=== PATIENT | female | born 1945 | race Caucasian/White ===

== ENCOUNTER 2020-04-18 16:36 | Inpatient (IN) ==
[2020-04-18] MEDS ORDERED: 0.9 % SODIUM CHLORIDE 1,000 ML IV ONE (17:35)
--- NOTE | 2020-04-18 17:41 | Emergency Department Note ---
Weakness HPI General Chief complaint: Weakness Stated complaint: Fall, lethargic, not eating or drinking Time Seen by Provider: 04/18/20 16:42 Source: EMS Mode of arrival: EMS Limitations: no limitations and altered mental status (Seeming lethargic or severe malaise but also arouses easily and well. Has difficulty hearing or understanding but is not clear which is the main problem.) History of Present Illness HPI Narrative: Narrative: Patient is here with generalized weakness and difficulty ambulating and poor p.o. intake. She reports having some sleepiness difficulties with taking hydrocodone which she has taken for her hip pain. She was prescribed #28 on the fifth. That bottle still has 7 and it. She was prescribed #60 on the and the bottle is mostly full. She states she has taken less of this. Some of her information is difficult to obtain due to either hardness of hearing or decreased mental function. Related Data Home Medications Medication Instructions Recorded Confirmed aspirin 81 mg chewable tablet 81 mg PO QDAY tab 11/19/14 05/05/19 naproxen sodium 220 mg capsule 440 mg PO Q12H cap 07/25/15 05/05/19 bisoprolol fumarate 10 mg tablet 15 mg PO QDAY tab 03/23/18 05/05/19 ezetimibe 10 mg-simvastatin 80 mg 1 tab PO QDAY 03/23/18 05/05/19 tablet lisinopril 40 mg tablet 40 mg PO QDAY 03/23/18 05/05/19 spironolactone 25 mg tablet 25 mg PO QDAY 03/23/18 05/05/19 levothyroxine 112 mcg PO QDAY 05/05/19 05/05/19 Previous Rx's Medication Instructions Recorded lidocaine 5 % topical ointment 1 applic TOPICAL TID PRN #50 g 04/08/17 nitroglycerin 0.4 mg sublingual 0.4 mg SUBLINGUAL .COMPLEX PRN #25 01/25/19 tablet tab ergocalciferol (vitamin D2) 1,250 50,000 unit PO QWEEK #12 cap 02/09/19 mcg (50,000 unit) capsule glipizide 10 mg tablet, extended 10 mg PO QDAY #30 tab 02/09/19 release 24 hr liraglutide 0.6 mg/0.1 mL (18 mg/3 1.8 mg SUB-Q QDAY #27 ml 03/07/19 mL) subcutaneous pen injector Allergies Allergy/AdvReac Type Severity Reaction Status Date / Time adhesive tape Allergy Unknown Hives Verified 04/18/20 16:36 metformin Allergy Unknown Diarrhea Verified 04/18/20 16:36 morphine [MORPHINE] Allergy Unknown UNKNOWN Verified 04/18/20 16:36 Penicillins [PENICILLINS] Allergy Unknown RASH Verified 04/18/20 16:36 shellfish derived Allergy Unknown Hives Verified 04/18/20 16:36 Thiopental [From Pentothal] Allergy Unknown Unknown Verified 04/18/20 16:36 chocolate flavor AdvReac Severe Other Verified 04/18/20 16:36 felodipine AdvReac Intermediate Edema Verified 04/18/20 16:36 actos Allergy Unknown Unknown Uncoded 11/02/18 10:31 SODIUM P[place]ATHOL Allergy Unknown UNKNOWN Uncoded 11/02/18 10:31 Review of Systems ROS ROS Narrative: Narrative: Difficult to obtain from patient and that she cannot read lips and is very hard of hearing. Obtained from , Travis, see below, "Medical Decision Making". [facility] Narrative Patient History Narrative: Narrative: Medical/Surgical/Family History All Active Problems (Updated 04/19/20 @ 07:33 by Tanmay Flores DO) Acute renal failure (ARF) (Acute) Dehydration (Acute) Hyponatremia (Acute) Abnormal ECG (Acute) Constipation (Acute) Elevated WBC count (Acute) Hypoalbuminemia (Acute) Abnormal computed tomography of pelvis (Acute) Shortness of breath (Chronic) Dysmetabolic syndrome X (Chronic) Chest pain (Chronic) CAD (coronary artery disease) (Chronic) Dyspnea (Chronic) Coronary arteriosclerosis (Chronic) Encounter for Health Maintenance Examination in Adult (Chronic) Acute knee pain (Chronic) Morbid obesity (Chronic) Annual physical exam (Chronic) History of coronary artery bypass graft (Chronic ~11/2012) Obesity (Chronic) Vitamin D deficiency (Chronic) Myocardial infarction acute (Chronic) Hypothyroidism (acquired) (Chronic) Hypertension, essential (Chronic) Hyperlipidemia (Chronic) Fatigue (Chronic) Edema (Chronic) Diabetes mellitus, type II (Chronic) Degenerative joint disease (Chronic) Congestive heart failure (Chronic) Medical History (Updated 04/19/20 @ 07:33 by Tanmay Flores DO) Acute knee pain (Chronic) likely due to twisting, able to ambulate without any issues, knee rom normal she likely hyas some OA in the left knee. Lidoderm patches for now. Acute renal failure (Resolved) Annual physical exam (Chronic) 02/27/17 Colonoscopy 2011, unclear when repeat is due, Dr. Isauro Broussard 2010 Normal PAP not indicated any more Mammogram 2010, 2014, 06/2016 Tdap 11/2014 PCV 11/2014 Hep C screen negative Atherosclerosis (Inactive) CAD (coronary artery disease) (Inactive) 02/16/2014 Dr. Ge Pruitt CAD (coronary artery disease) (Chronic) Chest pain (Inactive) Chest pain (Chronic) Congestive heart failure (Chronic) Coronary arteriosclerosis (Chronic) Degenerative joint disease (Chronic) Diabetes mellitus, type II (Chronic) Dysmetabolic syndrome X (Inactive) Dysmetabolic syndrome X (Chronic) Dyspnea (Chronic) Edema (Chronic) Fatigue (Chronic) Heart disease (Inactive) Arteriosclerotic Hyperlipidemia (Chronic) Hypertension, essential (Chronic) Hypothyroidism (acquired) (Chronic) Morbid obesity (Chronic) Poor physical activity/ poor diet, sits all day and eats cheetos, advised to cut back, Myocardial infarction acute (Chronic) 11/2012 Obesity (Chronic) Shortness of breath (Inactive) Shortness of breath (Chronic) Vitamin D deficiency (Chronic) Surgical History History of cardiac cath (Chronic ~11/28/99) History of cardiac catheterization (Inactive 11/28/99) History of coronary artery bypass graft (Chronic ~11/2012) 11/2012 x3 History of hip surgery (Inactive) Hip fusion. Does not specify date or which hip. History of hip surgery (Chronic) Hip fusion, does no specify date or which hip History of hysterectomy (Inactive) History of hysterectomy (Chronic) History of knee surgery (Inactive) Knee replacement, didn't specify which knee or when History of knee surgery (Chronic) Knee replacement, did not specify which kne or when History of tonsillectomy (Inactive) History of tonsillectomy (Chronic) Family History Mother Social History Smoking Status: Never smoker Alcohol Intake Frequency: does not drink Substance Use: does not use Exam Narrative Narrative: Narrative: General Limitations: no limitations and altered mental status (Seeming lethargic or severe malaise but also arouses easily and well. Has difficulty hearing or understanding but is not clear which is the main problem.) General appearance: Present in no apparent distress, malaise, nontoxic, obese and sleepy (Quickly and easily awakens and responds with eye opening.) Head Head: Present atraumatic and normocephalic Eye Eye: Present normal appearance, PERRL and EOMI ENT ENT: Present normal oropharynx and mucous membranes moist Neck Neck: Present trachea midline; Absent lymphadenopathy and thyromegaly Chest Chest: Present symmetric chest wall rise Respiratory Respiratory: Present normal lung sounds bilaterally; Absent respiratory distress, wheezes, stridor, accessory muscle use and prolonged expiratory phase Cardiovascular Cardiovascular: Present regular rate and normal rhythm; Absent systolic murmur and diastolic murmur Adbominal Abdominal: Present soft and tenderness (some mild upper); Absent distention, guarding, rebound, rigidity, organomegaly and mass Extremities Extremities: Present other (foot are moderately COOL. Dorsalis pedal pulse 0 on the right and 1+/4 on the left. Posterior tibial pulse trace on the right and may be trace on the left at best.); Absent normal capillary refill (2-3 sec in toes.), pedal edema, pretibial edema and calf tenderness Expanded Lower Extremity Hip/Pelvis: Present other (With flexing the hip and knees moving her legs around there is some discomfort she says in her low back sacroiliac area more with the left leg than the right and not until flex to 40+ degrees.); Absent tenderness Back Back: Absent tenderness (At least for the thoracic and upper lumbar.) Neurological Neurological: Present alert and oriented X3 Psychiatric Psychiatric: Present normal affect, normal mood, serious, polite and pleasant; Absent depressed, agitated, anxious, tearful and poor eye contact Skin Skin: Present cool (feet); Absent hot, diaphoretic and mottled Course Vital Signs Vital signs: Vital Signs Temperature 97.2 F 04/18/20 16:36 Pulse Rate 74 04/18/20 16:36 Respiratory Rate 16 04/18/20 16:36 Blood Pressure 115/6 04/18/20 16:36 Pulse Oximetry (%) 98 04/18/20 16:36 Temperature 98.4 F 04/18/20 20:19 Pulse Rate 71 11/19/20 06:01 Respiratory Rate 27 H 04/19/20 06:01 Blood Pressure 127/51 04/19/20 06:01 Pulse Oximetry (%) 100 04/19/20 06:01 MDM MDM Narrative Medical decision making narrative: Narrative: 6:29 PM - spoke with patient's , Pablo, who reports that her hearing is pretty bad. She often needs to read lips or be spoken to very loudly, and does process mentally intellectually quite well. She is here because of elevated blood sugar, low blood pressure, being quite weak, etc. Has had a poor appetite for a number of days including getting weaker over this past 1 week. He had to help her to the bathroom multiple times and last night she slipped and actually fell. It was not severe. She has been taking hydrocodone multiple times a day for generalized increased pain after her fall. She was on it occasionally prior to that. He does not know if she has osteoporosis. He is not sure if it is the cause of her decreased appetite. She has been using less in the past 24 hours apparently. REVIEW OF SYSTEMS PER : No fevers chills sweats ear pain sore throat runny nose chest pain cough shortness of breath abdominal pain nausea vomiting diarrhea dysuria rashes or lightheadedness/dizziness. Has had some weakness. Has had a little bit of constipation. Patient's white count elevated at 23.7. Cause of this is indeterminate. No obvious source. Chest x-ray normal. CT of the pelvis was negative: No fracture identified.. There is mild degenerative change in both hips. 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 Rectal exam revealed normal sphincter tone. She does have a significant bolus of moderately firm stool. No mass. Not particularly tender. Hemoccult is negative. Labs: * Low sodium at 127, chloride low at 92, carbon dioxide slightly low at 20. But the anion gap is normal at 15. * BUN and creatinine markedly elevated at 56 and 2.3. Previous numbers 13-20 and 0.9-1.1. * Blood sugar elevated at 448. * Low albumin, elevated globulin. * Procalcitonin elevated at 1.00. * TSH normal at 3.70 * Her lactic acid, venous (RT) was 1.6. * Troponin normal at 0.02 Patient's EKG demonstrates some inferolateral nonspecific changes with inverted T waves and or flattening. This is different than her previous EKG of January 2014. Uncertain how new this is. With her normal troponin, and her dehydration, this is most likely nonspecific mild cardiac electrical change. She is getting an additional 500 cc bolus. Given that she has had the abdominal discomfort we will go ahead with a CT of the abdomen. Pelvic exam did not show anything as above. She cannot have contrast IV due to her elevated creatinine. 7:27 PM -sugar from approximately 25 minutes ago was 352. I am going to go ahead with an additional [address] pelvis - 1. No evidence of fracture. 2. Marked diffuse enlargement of the le t piriformis muscle and moderate diffuse enlargement of the right piriformis muscle. Both muscles exhibit elevated attenuation suggesting posttraumatic muscle contusions. If the patient does not spontaneously recover in the next month, suggest repeat pelvic CT to reevaluate. 3. 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 Partial ankylosis - both SI joints 7:46 PM - I spoke with hospitalist, Dr. Gopi Lipscomb, regarding the possibility of keeping this patient overnight to have bed availability in the morning. She is willing to do so and would rather stay here than be transferred. Has been also indicates this. She and a discussion regarding CODE STATUS prefers to remain in stay full code but agrees to time limitation of reasonable thus per provider. As I discussed with Dr. Lipscomb her medical situation he agrees with a serial troponin and recommends I discussed with the radiologist the possibility of abscess on the piriformis versus bleeding, obtaining a manual differential, and CRP. These will be obtained. 7:59 PM - I spoke with Dr. Givens regarding the piriformis abnormalities that were seen on the CT scan. He admits that they could be a type of myositis/infection as opposed to just contusion. We will wait for the CRP and manual differential as above. 8:50 PM - CT of the abdomen comes back with perinephric stranding present bilaterally. No hydronephrosis or nephrolithiasis. No ureteral or bladder calculi. Small stones with sludge within the lumen of the gallbladder. No CT evidence of colitis, diverticulitis or appendicitis. No lymphadenopathy. I suspect that the perinephric stranding is secondary to the underlying cause of dehydration and acute renal failure although I am uncertain if this correlates well or not. We will do a UA. The labs still pending. 10:25 PM - I discussed the elevated CRP and the segmented neutrophils of 93% wit h Dr. Lipscomb, hospitalist, occlusions for antibiotic choice of vancomycin and cefepime. These are now ordered. Blood cultures ordered prior to this. Rapid Covid test, DR Goran was negative. 10:53 PM - labs ordered for the morning. CBC, inpatient panel, CRP, UA dip check for specific gravity. We will keep her at 84 cc/h of normal saline. Her sodium was 127. Magnesium and these electrolytes will be rechecked at 5 in the morning. Because of her constipation but with the bilateral psoas abnormalities, I am not intending for an enema at this point but will have her receive a Dulcolax rectal suppository as well as an oral dose this evening. 7:05 AM - labs reviewed. White count is similar to last evening to slightly decreased. Sodium is come up into the normal range. Creatinine is gone down to 1.4 which is a significant improvement. She does have a low albumin even lower than previously suggesting poor nutrition. 7:22 AM - spoke with hospitalist, Dr. Gopi Lipscomb, who is willing to accept patient at this point and will be down to see her. He will write additional orders on her antibiotics. Lab Data Result diagrams: 04/19/20 04:16 04/19/20 04:16 Labs: Lab Results 04/18/20 04/18/20 04/18/20 Range/Units 17:18 17:18 17:18 WBC 23.7 H (4.5-11.0) K/mcL RBC 4.22 (4.00-5.20) M/mcL Hgb 12.5 (12.0-15.0) g/dL Hct 37.7 (36.0-48.0) % MCV 89.3 (80.0-100.0) fL MCH 29.6 (26.0-34.0) pg MCHC 33.2 (31.0-36.0) g/dL RDW 13.3 (11.5-14.5) % Plt Count 477 H (140-440) K/mcL MPV 10.2 (7.4-10.4) fL Neut % (Auto) 89.1 H (38.0-78.0) % Lymph % (Auto) 4.0 L (15.0-49.0) % [place] % (Auto) 6.5 (1.0-12.0) % Eos % (Auto) 0.2 (0.0-7.0) % Baso % (Auto) 0.2 (0.0-2.0) % Lymph # (Auto) 0.95 L (1.50-4.80) K/mcL [place] # (Auto) 1.55 H (0.10-0.90) K/mcL Eos # (Auto) 0.05 (0.00-0.70) K/mcL Baso # (Auto) 0.05 (0.00-0.20) K/mcL Seg Neutrophils % (38-78) % Lymphocytes % (15-49) % Monocytes % (Manual) (1-12) % Absolute Neutrophils 21.12 H (1.80-8.00) K/mcL Platelet Estimate (Normal) RBC Morphology (Normal) Sodium 127 L (133-145) mmol/L Potassium 3.9 (3.3-5.1) mmol/L Chloride 92 L (96-108) mmol/L Carbon Dioxide 20 L (22-30) mmol/L Anion Gap 15.0 (8.0-16.0) BUN 56 H (8-23) mg/dL Creatinine 2.3 H (0.6-1.1) mg/dL GFR Calculation 20 Glucose 448 H (70-105) mg/dL Uric Acid (2.5-8.0) mg/dL Calcium 9.2 (8.6-10.4) mg/dL Phosphorus (2.5-4.5) mg/dL Magnesium (1.6-2.5) mg/dL Total Bilirubin 0.5 (0.1-1.0) mg/dL Direct Bilirubin (<0.3) mg/dL GGT (5-36) U/L AST 25 (<32) U/L ALT 20 (<40) U/L Alkaline Phosphatase 133 H (39-117) U/L Lactate Dehydrogenase (135-225) U/L Troponin T (<0.03) ng/mL C-Reactive Protein (0.03-0.80) mg/dL Total Protein 6.9 (5.9-8.4) gm/dL Albumin 2.6 L (3.2-5.2) gm/dL Globulin 4.3 H (2.2-3.7) gm/dL Albumin/Globulin Ratio 0.6 L (1.0-2.3) Triglycerides (<150) mg/dL Procalcitonin (<0.10) ng/mL TSH 3.70 (0.27-5.01) uIU/mL SARS-CoV-2 (PCR) (Negative) 04/18/20 04/18/20 04/18/20 Range/Units 17:18 17:18 17:18 WBC (4.5-11.0) K/mcL RBC (4.00-5.20) M/mcL Hgb (12.0-15.0) g/dL Hct (36.0-48.0) % MCV (80.0-100.0) fL MCH (26.0-34.0) pg MCHC (31.0-36.0) g/dL RDW (11.5-14.5) % Plt Count (140-440) K/mcL MPV (7.4-10.4) fL Neut % (Auto) (38.0-78.0) % Lymph % (Auto) (15.0-49.0) % [place] % (Auto) (1.0-12.0) % Eos % (Auto) (0.0-7.0) % Baso % (Auto) (0.0-2.0) % Lymph # (Auto) (1.50-4.80) K/mcL [place] # (Auto) (0.10-0.90) K/mcL Eos # (Auto) (0.00-0.70) K/mcL Baso # (Auto) (0.00-0.20) K/mcL Seg Neutrophils % 93 H (38-78) % Lymphocytes % 4 L (15-49) % Monocytes % (Manual) 3 (1-12) % Absolute Neutrophils (1.80-8.00) K/mcL Platelet Estimate Normal (Normal) RBC Morphology Normal (Normal) Sodium (133-145) mmol/L Potassium (3.3-5.1) mmol/L Chloride (96-108) mmol/L Carbon Dioxide (22-30) mmol/L Anion Gap (8.0-16.0) BUN (8-23) mg/dL Creatinine (0.6-1.1) mg/dL GFR Calculation Glucose (70-105) mg/dL Uric Acid (2.5-8.0) mg/dL Calcium (8.6-10.4) mg/dL Phosphorus (2.5-4.5) mg/dL Magnesium (1.6-2.5) mg/dL Total Bilirubin (0.1-1.0) mg/dL Direct Bilirubin (<0.3) mg/dL GGT (5-36) U/L AST (<32) U/L ALT (<40) U/L Alkaline Phosphatase (39-117) U/L Lactate Dehydrogenase (135-225) U/L Troponin T 0.02 (<0.03) ng/mL C-Reactive Protein (0.03-0.80) mg/dL Total Protein (5.9-8.4) gm/dL Albumin (3.2-5.2) gm/dL Globulin (2.2-3.7) gm/dL Albumin/Globulin Ratio (1.0-2.3) Triglycerides (<150) mg/dL Procalcitonin 1.00 H (<0.10) ng/mL TSH (0.27-5.01) uIU/mL SARS-CoV-2 (PCR) (Negative) 04/18/20 04/18/20 04/19/20 Range/Units 17:18 20:15 04:16 WBC 23.2 H (4.5-11.0) K/mcL RBC 3.83 L (4.00-5.20) M/mcL Hgb 11.4 L (12.0-15.0) g/dL Hct 35.0 L (36.0-48.0) % MCV 91.4 (80.0-100.0) fL MCH 29.8 (26.0-34.0) pg MCHC 32.6 (31.0-36.0) g/dL RDW 13.4 (11.5-14.5) % Plt Count 417 (140-440) K/mcL MPV 10.2 (7.4-10.4) fL Neut % (Auto) 86.8 H (38.0-78.0) % Lymph % (Auto) 5.5 L (15.0-49.0) % [place] % (Auto) 7.3 (1.0-12.0) % Eos % (Auto) 0.1 (0.0-7.0) % Baso % (Auto) 0.3 (0.0-2.0) % Lymph # (Auto) 1.27 L (1.50-4.80) K/mcL [place] # (Auto) 1.69 H (0.10-0.90) K/mcL Eos # (Auto) 0.03 (0.00-0.70) K/mcL Baso # (Auto) 0.06 (0.00-0.20) K/mcL Seg Neutrophils % (38-78) % Lymphocytes % (15-49) % Monocytes % (Manual) (1-12) % Absolute Neutrophils 20.12 H (1.80-8.00) K/mcL Platelet Estimate (Normal) RBC Morphology (Normal) Sodium (133-145) mmol/L Potassium (3.3-5.1) mmol/L Chloride (96-108) mmol/L Carbon Dioxide (22-30) mmol/L Anion Gap (8.0-16.0) BUN (8-23) mg/dL Creatinine (0.6-1.1) mg/dL GFR Calculation Glucose (70-105) mg/dL Uric Acid (2.5-8.0) mg/dL Calcium (8.6-10.4) mg/dL Phosphorus (2.5-4.5) mg/dL Magnesium (1.6-2.5) mg/dL Total Bilirubin (0.1-1.0) mg/dL Direct Bilirubin (<0.3) mg/dL GGT (5-36) U/L AST (<32) U/L ALT (<40) U/L Alkaline Phosphatase (39-117) U/L Lactate Dehydrogenase (135-225) U/L Troponin T (<0.03) ng/mL C-Reactive Protein 31.30 H (0.03-0.80) mg/dL Total Protein (5.9-8.4) gm/dL Albumin (3.2-5.2) gm/dL Globulin (2.2-3.7) gm/dL Albumin/Globulin Ratio (1.0-2.3) Triglycerides (<150) mg/dL Procalcitonin (<0.10) ng/mL TSH (0.27-5.01) uIU/mL SARS-CoV-2 (PCR) Negative (Negative) 04/19/20 Range/Units 04:16 WBC (4.5-11.0) K/mcL RBC (4.00-5.20) M/mcL Hgb (12.0-15.0) g/dL Hct (36.0-48.0) % MCV (80.0-100.0) fL MCH (26.0-34.0) pg MCHC (31.0-36.0) g/dL RDW (11.5-14.5) % Plt Count (140-440) K/mcL MPV (7.4-10.4) fL Neut % (Auto) (38.0-78.0) % Lymph % (Auto) (15.0-49.0) % [place] % (Auto) (1.0-12.0) % Eos % (Auto) (0.0-7.0) % Baso % (Auto) (0.0-2.0) % Lymph # (Auto) (1.50-4.80) K/mcL [place] # (Auto) (0.10-0.90) K/mcL Eos # (Auto) (0.00-0.70) K/mcL Baso # (Auto) (0.00-0.20) K/mcL Seg Neutrophils % (38-78) % Lymphocytes % (15-49) % Monocytes % (Manual) (1-12) % Absolute Neutrophils (1.80-8.00) K/mcL Platelet Estimate (Normal) RBC Morphology (Normal) Sodium 133 (133-145) mmol/L Potassium 3.6 (3.3-5.1) mmol/L Chloride 101 (96-108) mmol/L Carbon Dioxide 21 L (22-30) mmol/L Anion Gap 11.0 (8.0-16.0) BUN 45 H (8-23) mg/dL Creatinine 1.4 H (0.6-1.1) mg/dL GFR Calculation 37 Glucose 254 H (70-105) mg/dL Uric Acid 8.0 (2.5-8.0) mg/dL Calcium 8.7 (8.6-10.4) mg/dL Phosphorus 2.5 (2.5-4.5) mg/dL Magnesium 1.6 (1.6-2.5) mg/dL Total Bilirubin 0.4 (0.1-1.0) mg/dL Direct Bilirubin < 0.2 (<0.3) mg/dL GGT 25 (5-36) U/L AST 23 (<32) U/L ALT 18 (<40) U/L Alkaline Phosphatase 115 (39-117) U/L Lactate Dehydrogenase 182 (135-225) U/L Troponin T (<0.03) ng/mL C-Reactive Protein 26.00 H (0.03-0.80) mg/dL Total Protein 6.0 (5.9-8.4) gm/dL Albumin 2.1 L (3.2-5.2) gm/dL Globulin 3.9 H (2.2-3.7) gm/dL Albumin/Globulin Ratio 0.5 L (1.0-2.3) Triglycerides 112 (<150) mg/dL Procalcitonin (<0.10) ng/mL TSH (0.27-5.01) uIU/mL SARS-CoV-2 (PCR) (Negative) Discharge Plan Patient/Caregiver Discharge Instructions Pt seen by [employer]/PA only: No Clinical Impression: Dehydration, Hyponatremia, Abnormal ECG, Hypoalbuminemia, Abnormal computed hilaria ography of pelvis Acute renal failure (ARF) Qualifiers: Acute renal failure type: unspecified Qualified Code(s): N17.9 - Acute kidney failure, unspecified Constipation Qualifiers: Constipation type: drug induced constipation Qualified Code(s): K59.03 - Drug induced constipation Elevated WBC count Qualifiers: Leukocytosis type: unspecified Qualified Code(s): D72.829 - Elevated white blood cell count, unspecified Patient Disposition: Xfer As Inpt ([facility]) Follow up with: Maria Dolores Fernandes MD [Primary Care Provider] - Prescriptions: No Action lidocaine 5 % ointment 1 applic TOPICAL TID PRN (Reason: pain) Qty: 50 RF: 3 nitroglycerin 0.4 mg tablet, sublingual 0.4 mg SUBLINGUAL .COMPLEX PRN (Reason: chest pain) Qty: 25 RF: 0 glipizide 10 mg tablet extended release 24hr 10 mg PO QDAY Qty: 30 RF: 2 ergocalciferol (vitamin D2) 50,000 unit capsule 50,000 unit PO QWEEK Qty: 12 RF: 0 Victoza 3-Jero 0.6 mg/0.1 mL (18 mg/3 mL) pen injector 1.8 mg SUB-Q QDAY Qty: 27 RF: 0 bisoprolol fumarate 10 mg tablet 15 mg PO QDAY RF: 0 ezetimibe-simvastatin 10-80 mg tablet 1 tab PO QDAY RF: 0 lisinopril 40 mg tablet 40 mg PO QDAY RF: 0 spironolactone 25 mg tablet 25 mg PO QDAY RF: 0 aspirin 81 mg tablet,chewable 81 mg PO QDAY RF: 0 naproxen sodium [Aleve] 220 mg capsule 440 mg PO Q12H RF: 0 levothyroxine 125 MCG tablet 112 mcg PO QDAY RF: 0
[2020-04-18 17:56] LABS: Basophils # (Auto) 0.05 K/mcL (0.00-0.20); Basophils % (Auto) 0.2 % (0.0-2.0); Eosinophils # (Auto) 0.05 K/mcL (0.00-0.70); Eosinophils % (Auto) 0.2 % (0.0-7.0); Hematocrit 37.7 % (36.0-48.0); Hemoglobin 12.5 g/dL (12.0-15.0); Lymphocytes # (Auto) 0.95 K/mcL (1.50-4.80); Mean Cell Volume 89.3 fL (80.0-100.0); Mean Corpuscular HGB Conc 33.2 g/dL (31.0-36.0); Mean Platelet Volume 10.2 fL (7.4-10.4); Monocytes # (Auto) 1.55 K/mcL (0.10-0.90); Monocytes % (Auto) 6.5 % (1.0-12.0); Neutrophils % (Auto) 89.1 % (38.0-78.0); Platelet Count 477 K/mcL (140-440); RBC 4.22 M/mcL (4.00-5.20); Red Cell Distribution Width 13.3 % (11.5-14.5); WBC 23.7 K/mcL (4.5-11.0)
--- NOTE | 2020-04-18 18:08 | XRay Report ---
CLINICAL INFORMATION: Chest pain COMPARISON: 12/21/2012 TECHNIQUE: Portable FINDINGS: The heart size, mediastinum and pulmonary vessels are unremarkable. The lungs are clear. There are no effusions. The bones and soft tissues are within normal limits. IMPRESSION: Normal chest. Interpreted and Authenticated by: Jasvir Givens 04/18/20
[2020-04-18] MEDS ORDERED: INSULIN REGULAR, HUMAN 1 UNIT/0.01 ML UNIT IV ONE ×2 (18:14→19:27)
[2020-04-18 18:23] LABS: ALT/SGPT 20 U/L (<40); AST/SGOT 25 U/L (<32); Albumin 2.6 gm/dL (3.2-5.2); Albumin/Globulin Ratio 0.6 (1.0-2.3); Alkaline Phosphatase 133 U/L (39-117); Bilirubin,Total 0.5 mg/dL (0.1-1.0); Blood Urea Nitrogen 56 mg/dL (8-23); Calcium 9.2 mg/dL (8.6-10.4); Carbon Dioxide 20 mmol/L (22-30); Chloride 92 mmol/L (96-108); Globulin 4.3 gm/dL (2.2-3.7); Glomerular Filtration Rate 20; Glucose 448 mg/dL (70-105)
--- NOTE | 2020-04-18 18:29 | Cat Scan Report ---
CLINICAL INFORMATION: Trauma - fall one week prior COMPARISON: None. TECHNIQUE: .625mm helical slices were obtained from the mid L4 through the subtrochanteric regions. Following reconstruction, 2.5 mm sagittal, coronal and axial reformations were processed. The exam was reviewed in bone and soft tissue windows. The exam was performed using radiation dose optimization techniques including, but not limited to, automated exposure control, adjustment of mA and/or kV according to patient size and use of iterative reconstruction technique. FINDINGS: No fracture identified.. There is mild degenerative change in both hips. 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 Lumbar spine: at L3-4 moderate broad disc spur complex and facet arthropathy resulting in moderate central canal, bilateral lateral recess and IV foraminal narrowing with impingement of the exiting L3 and descending L4 nerve roots. L4-5, moderate broad disc protrusion and facet arthropathy result in severe central canal, bilateral lateral recess and IV foraminal narrowing impinging the exiting L4 and descending L5 nerve roots. At L5-S1 moderate broad disc protrusion and facet arthropathy result in moderate central canal and bilateral IV foraminal narrowing. Soft tissue windows show marked diffuse enlargement of the left and moderate diffuse enlargement of the right piriformis muscles. Both muscles show slight elevation in attenuation suggesting hematoma. There is also a small amount of wispy soft tissue density in the pelvic fat anterior to the right piriform. Suspect posttraumatic contusions both of these muscles. Muscle and fascial planes are, otherwise, normal. Hysterectomy changes noted. Urinary bladder is unremarkable. Few sigmoid diverticuli appreciated, but the remaining visualized large and small bowel are normal. No free air, free fluid or adenopathy. IMPRESSION: 1. No evidence of fracture. 2. Marked diffuse enlargement of the left piriformis muscle and moderate diffuse enlargement of the right piriformis muscle. Both muscles exhibit elevated attenuation suggesting posttraumatic muscle contusions. If the patient does not spontaneously recover in the next month, suggest repeat pelvic CT to reevaluate. 3. 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 Partial ankylosis - both SI joints Interpreted and Authenticated by: Jasvir Givens 04/18/20
[2020-04-18] MEDS ORDERED: 0.9 % SODIUM CHLORIDE 500 ML IV ONE (18:39)
[2020-04-18 20:31] LABS: Lymphocytes % 4 % (15-49); Monocytes % (Manual) 3 % (1-12); Platelet Estimate NORMAL (Normal); RBC Morphology NORMAL (Normal); Segmented Neutrophils % 93 % (38-78)
[2020-04-18] MEDS ORDERED: LEVOFLOXACIN 500 MG/100 ML BAG IV ONE (22:17)
[2020-04-18] MEDS ORDERED: CEFEPIME 1 GM VIAL IV ONE (22:25)
[2020-04-18] MEDS ORDERED: VANCOMYCIN 750 MG in 0.9 % SODIUM CHLORIDE 250 ML IV ONE (22:25)
[2020-04-18] MEDS ORDERED: BISACODYL 10 MG SUPP.RECT PR ONE (22:54)
[2020-04-18] MEDS ORDERED: BISACODYL 5 MG TABLET PO ONE (22:54)
[2020-04-18] MEDS ORDERED: 0.9 % SODIUM CHLORIDE 1,000 ML IV SCH (23:00)
[2020-04-19 04:47] LABS: Basophils # (Auto) 0.06 K/mcL (0.00-0.20); Basophils % (Auto) 0.3 % (0.0-2.0); Eosinophils # (Auto) 0.03 K/mcL (0.00-0.70); Eosinophils % (Auto) 0.1 % (0.0-7.0); Hemoglobin 11.4 g/dL (12.0-15.0); Lymphocytes # (Auto) 1.27 K/mcL (1.50-4.80); Lymphocytes % (Auto) 5.5 % (15.0-49.0); Mean Cell Volume 91.4 fL (80.0-100.0); Mean Corpuscular HGB Conc 32.6 g/dL (31.0-36.0); Mean Platelet Volume 10.2 fL (7.4-10.4); Monocytes # (Auto) 1.69 K/mcL (0.10-0.90); Monocytes % (Auto) 7.3 % (1.0-12.0); Neutrophils % (Auto) 86.8 % (38.0-78.0); Platelet Count 417 K/mcL (140-440); RBC 3.83 M/mcL (4.00-5.20); Red Cell Distribution Width 13.4 % (11.5-14.5); WBC 23.2 K/mcL (4.5-11.0)
[2020-04-19 05:11] LABS: ALT/SGPT 18 U/L (<40); AST/SGOT 23 U/L (<32); Albumin 2.1 gm/dL (3.2-5.2); Albumin/Globulin Ratio 0.5 (1.0-2.3); Alkaline Phosphatase 115 U/L (39-117); Bilirubin,Direct < 0.2 mg/dL (<0.3); Bilirubin,Total 0.4 mg/dL (0.1-1.0); Blood Urea Nitrogen 45 mg/dL (8-23); Calcium 8.7 mg/dL (8.6-10.4); Carbon Dioxide 21 mmol/L (22-30); Chloride 101 mmol/L (96-108); Globulin 3.9 gm/dL (2.2-3.7); Glomerular Filtration Rate 37; Glucose 254 mg/dL (70-105); Lactate Dehydrogenase 182 U/L (135-225); Phosphorous 2.5 mg/dL (2.5-4.5); Triglycerides 112 mg/dL (<150)
--- NOTE | 2020-04-19 05:52 | Cat Scan Report ---
CLINICAL INFORMATION: Abdominal pain and elevated white blood cell count. COMPARISON: None. TECHNIQUE: Intravenous contrast was withheld due to elevated creatinine. 0.625 mm helical slices were obtained from the mid heart through the subtrochanteric regions. Following reconstruction, 2.5 mm sagittal, coronal and axial reformatted images were processed and reviewed at bone and soft tissue windows.The exam was performed using radiation dose optimization techniques including, but not limited to, automated exposure control, adjustment of the mA and/or kV according to patient size and use of iterative reconstruction technique. FINDINGS: Lung bases show minimal scattered scarring and/or atelectasis. There are no effusions. The visualized heart is mildly enlarged with very heavy calcification in the visualized coronary arteries. Abdominal images show multiple small stones layering within the gallbladder. The gallbladder is, otherwise, normal. Intrahepatic and common bile ducts are normal diameter: CBD is 6 mm. The noncontrasted liver, adrenal glands, spleen, pancreas and aorta are normal in size, configuration and attenuation without focal lesion. The stomach and visualized small large bowel are unremarkable. Minor scattered cortical is seen in both kidneys with perinephric stranding. There is extremely vague low-attenuation region spanning 2.4 cm and the superior pole the right kidney. This is likely insignificant, but ultrasound is suggested to include a mass. There is no free air, free fluid no adenopathy.. Bone windows show degenerative changes in the lumbar spine. There are no focal osseous lesions. IMPRESSION: 1. Both kidneys demonstrate inhomogeneous attenuation with perinephric stranding is likely within normal limits. Please correlate with UA to exclude urinary tract infection. 2. Cholelithiasis. 3. Vague 2.4 cm low-attenuation region in the superior pole the right kidney is likely artifact. Suggest abdominal ultrasound both to confirm the presence of gallstones evaluate the gallbladder and to exclude mass in the right kidney. 4. Very heavy calcific plaque in the coronary arteries. Interpreted and Authenticated by: Jasvir Givens 04/19/20
--- NOTE | 2020-04-19 07:59 | Internal Med History&Physical ---
HPI History of Present Illness Patient information: Note initiated : 04/19/20 at 7:46 am Service Date, if different from initiated Date: [] Patient: Miladis Salazar a 74 y/o F admitted on for Fall, lethargic, not eating or drinking. Chief Complaint: [] History of present illness: Ms. Salazar is a 74 year old F History obtained from chart as well as patient, patient poor historian. Patient fell about a week ago onto her bottom. Do not know where she was seen she could not give me that history. She said she got some x-rays and was given some pain medication and went home. Over the past week per she has been increasingly weak decreased oral intake. Lethargic and sleeping a lot at home. In the ED she was quite somnolent. Found to have acute kidney injury. She had a significant leukocytosis of 23,000. She was given IV fluid hydration with improvement in her mentation through the night. Imaging of her pelvis showed a markedly diffuse enlargement of the left piriformis muscle and moderate in the right. Case discussed with radiologist who could not rule out developing fracture of that muscle on imaging recommended a needle biopsy. Patient thinks she has missed some medications lately at home. Her blood glucose was quite elevated. The found to be mildly hyponatremic which improved with IV fluids overnight. CRP was 32. She does have some low back/pelvis pain more on the left side low back. Review of Systems: Pertinent positives as above. Denies headache/fever/chills/nausea/vomiting/chest or abdominal pain/cough/dyspnea/diarrhea. Otherwise see above. PFSH PFSH All Active Problems (Updated 04/19/20 @ 07:33 by Tanmay Flores DO) Acute renal failure (ARF) (Acute) Dehydration (Acute) Hyponatremia (Acute) Abnormal ECG (Acute) Constipation (Acute) Elevated WBC count (Acute) Hypoalbuminemia (Acute) Abnormal computed tomography of pelvis (Acute) Shortness of breath (Chronic) Dysmetabolic syndrome X (Chronic) Chest pain (Chronic) CAD (coronary artery disease) (Chronic) Dyspnea (Chronic) Coronary arteriosclerosis (Chronic) Encounter for Health Maintenance Examination in Adult (Chronic) Acute knee pain (Chronic) Morbid obesity (Chronic) Annual physical exam (Chronic) History of coronary artery bypass graft (Chronic ~11/2012) Obesity (Chronic) Vitamin D deficiency (Chronic) Myocardial infarction acute (Chronic) Hypothyroidism (acquired) (Chronic) Hypertension, essential (Chronic) Hyperlipidemia (Chronic) Fatigue (Chronic) Edema (Chronic) Diabetes mellitus, type II (Chronic) Degenerative joint disease (Chronic) Congestive heart failure (Chronic) Medical History (Updated 04/19/20 @ 07:33 by Tanmay Flores DO) Acute knee pain (Chronic) likely due to twisting, able to ambulate without any issues, knee rom normal she likely hyas some OA in the left knee. Lidoderm patches for now. Acute renal failure (Resolved) Annual physical exam (Chronic) 02/27/17 Colonoscopy 2011, unclear when repeat is due, Dr. Box Dexa 2010 Normal PAP not indicated any more Mammogram 2010, 2014, 06/2016 Tdap 11/2014 PCV 11/2014 Hep C screen negative Atherosclerosis (Inactive) CAD (coronary artery disease) (Inactive) 02/16/2014 Dr. Ge Pruitt CAD (coronary artery disease) (Chronic) Chest pain (Inactive) Chest pain (Chronic) Congestive heart failure (Chronic) Coronary arteriosclerosis (Chronic) Degenerative joint disease (Chronic) Diabetes mellitus, type II (Chronic) Dysmetabolic syndrome X (Inactive) Dysmetabolic syndrome X (Chronic) Dyspnea (Chronic) Edema (Chronic) Fatigue (Chronic) Heart disease (Inactive) Arteriosclerotic Hyperlipidemia (Chronic) Hypertension, essential (Chronic) Hypothyroidism (acquired) (Chronic) Morbid obesity (Chronic) Poor physical activity/ poor diet, sits all day and eats cheetos, advised to cut back, Myocardial infarction acute (Chronic) 11/2012 Obesity (Chronic) Shortness of breath (Inactive) Shortness of breath (Chronic) Vitamin D deficiency (Chronic) Surgical History History of cardiac cath (Chronic ~11/28/99) History of cardiac catheterization (Inactive 11/28/99) History of coronary artery bypass graft (Chronic ~11/2012) 11/2012 x3 History of hip surgery (Inactive) Hip fusion. Does not specify date or which hip. History of hip surgery (Chronic) Hip fusion, does no specify date or which hip History of hysterectomy (Inactive) History of hysterectomy (Chronic) History of knee surgery (Inactive) Knee replacement, didn't specify which knee or when History of knee surgery (Chronic) Knee replacement, did not specify which kne or when History of tonsillectomy (Inactive) History of tonsillectomy (Chronic) Family History Mother Family history of cardiac disorder, Onset Age: 77 Family history of cardiac problems Social History (Updated 06/07/19 @ 15:45 by Alexa Hernandez, RD, LD, CD) adopted: Yes occupational status: retired smoking status: Never smoker alcohol intake frequency: does not drink substance use type: does not use MEDS/ALLERGIES Home Medications and Allergies Home Medications Medication Instructions Recorded Confirmed Type aspirin 81 mg chewable tablet 81 mg PO QDAY tab 11/19/14 05/05/19 History naproxen sodium 220 mg capsule 440 mg PO Q12H cap 07/25/15 05/05/19 History lidocaine 5 % topical ointment 1 applic TOPICAL TID PRN #50 g 04/08/17 05/05/19 Rx bisoprolol fumarate 10 mg tablet 15 mg PO QDAY tab 03/23/18 05/05/19 History ezetimibe 10 mg-simvastatin 80 mg 1 tab PO QDAY 03/23/18 05/05/19 History tablet lisinopril 40 mg tablet 40 mg PO QDAY 03/23/18 05/05/19 History spironolactone 25 mg tablet 25 mg PO QDAY 03/23/18 05/05/19 History nitroglycerin 0.4 mg sublingual 0.4 mg SUBLINGUAL .COMPLEX PRN #25 01/25/19 05/05/19 Rx tablet tab ergocalciferol (vitamin D2) 1,250 50,000 unit PO QWEEK #12 cap 02/09/19 05/05/19 Rx mcg (50,000 unit) capsule glipizide 10 mg tablet, extended 10 mg PO QDAY #30 tab 02/09/19 05/05/19 Rx release 24 hr liraglutide 0.6 mg/0.1 mL (18 mg/3 1.8 mg SUB-Q QDAY #27 ml 03/07/19 05/05/19 Rx mL) subcutaneous pen injector levothyroxine 112 mcg PO QDAY 05/05/19 05/05/19 History Allergies Allergy/AdvReac Type Severity Reaction Status Date / Time adhesive tape Allergy Unknown Hives Verified 04/18/20 16:36 metformin Allergy Unknown Diarrhea Verified 04/18/20 16:36 morphine [MORPHINE] Allergy Unknown UNKNOWN Verified 04/18/20 16:36 Penicillins [PENICILLINS] Allergy Unknown RASH Verified 04/18/20 16:36 shellfish derived Allergy Unknown Hives Verified 04/18/20 16:36 Thiopental [From Pentothal] Allergy Unknown Unknown Verified 04/18/20 16:36 chocolate flavor AdvReac Severe Other Verified 04/18/20 16:36 felodipine AdvReac Intermediate Edema Verified 04/18/20 16:36 actos Allergy Unknown Unknown Uncoded 11/02/18 10:31 SODIUM [place] Allergy Unknown UNKNOWN Uncoded 11/02/18 10:31 EXAM Constitutional Vitals: Temp Pulse Resp BP Pulse Ox 98.4 F 71 27 H 127/51 100 04/18/20 20:19 04/19/20 06:01 04/19/20 06:01 04/19/20 06:01 04/19/20 06:01 Exam: General: Alert, Awake, No acute Distress, obese Eyes/N/T: EOMI, PERRL, dry MM Head/Neck: neck supple, normocephalic atraumatic CV: RRR, No murmurs, normal s1/s2 Pulm: Clear b/l, no wheezing/rhonchi/rales Abd: soft, nontender, +BS x4 Ext: no clubbing/cyanosis, trace b/l LE edema Neuro: Alert, no focal deficits, moves all extremities, CN 2-12 grossly intact, sensations intact b/l upper/lower Skin: warm/dry DATA Data Completed and Pending Labs: Labs from last 24 hours 04/19/20 04/19/20 04/19/20 04:16 04:16 04:16 WBC 23.2 H RBC 3.83 L Hgb 11.4 L Hct 35.0 L MCV 91.4 MCH 29.8 MCHC 32.6 RDW 13.4 Plt Count 417 MPV 10.2 Neut % (Auto) 86.8 H Lymph % (Auto) 5.5 L [place] % (Auto) 7.3 Eos % (Auto) 0.1 Baso % (Auto) 0.3 Lymph # (Auto) 1.27 L [place] # (Auto) 1.69 H Eos # (Auto) 0.03 Baso # (Auto) 0.06 Seg Neutrophils % Lymphocytes % Monocytes % (Manual) Absolute Neutrophils 20.12 H Platelet Estimate Pending RBC Morphology Pending Sodium 133 Potassium 3.6 Chloride 101 Carbon Dioxide 21 L Anion Gap 11.0 BUN 45 H Creatinine 1.4 H GFR Calculation 37 Glucose 254 H Uric Acid 8.0 Calcium 8.7 Phosphorus 2.5 Magnesium 1.6 Total Bilirubin 0.4 Direct Bilirubin < 0.2 GGT 25 AST 23 ALT 18 Alkaline Phosphatase 115 Lactate Dehydrogenase 182 Troponin T C-Reactive Protein 26.00 H Total Protein 6.0 Albumin 2.1 L Globulin 3.9 H Albumin/Globulin Ratio 0.5 L Triglycerides 112 Procalcitonin TSH SARS-CoV-2 (PCR) 04/18/20 04/18/20 04/18/20 20:15 17:18 17:18 WBC RBC Hgb Hct MCV MCH MCHC RDW Plt Count MPV Neut % (Auto) Lymph % (Auto) [place] % (Auto) Eos % (Auto) Baso % (Auto) Lymph # (Auto) [place] # (Auto) Eos # (Auto) Baso # (Auto) Seg Neutrophils % 93 H Lymphocytes % 4 L Monocytes % (Manual) 3 Absolute Neutrophils Platelet Estimate Normal RBC Morphology Normal Sodium Potassium Chloride Carbon Dioxide Anion Gap BUN Creatinine GFR Calculation Glucose Uric Acid Calcium Phosphorus Magnesium Total Bilirubin Direct Bilirubin GGT AST ALT Alkaline Phosphatase Lactate Dehydrogenase Troponin T C-Reactive Protein 31.30 H Total Protein Albumin Globulin Albumin/Globulin Ratio Triglycerides Procalcitonin TSH SARS-CoV-2 (PCR) Negative 04/18/20 04/18/20 04/18/20 17:18 17:18 17:18 WBC RBC Hgb Hct MCV MCH MCHC RDW Plt Count MPV Neut % (Auto) Lymph % (Auto) [place] % (Auto) Eos % (Auto) Baso % (Auto) Lymph # (Auto) [place] # (Auto) Eos # (Auto) Baso # (Auto) Seg Neutrophils % Lymphocytes % Monocytes % (Manual) Absolute Neutrophils Platelet Estimate RBC Morphology Sodium Potassium Chloride Carbon Dioxide Anion Gap BUN Creatinine GFR Calculation Glucose Uric Acid Calcium Phosphorus Magnesium Total Bilirubin Direct Bilirubin GGT AST ALT Alkaline Phosphatase Lactate Dehydrogenase Troponin T 0.02 C-Reactive Protein Total Protein Albumin Globulin Albumin/Globulin Ratio Triglycerides Procalcitonin 1.00 H TSH 3.70 SARS-CoV-2 (PCR) 11/18/20 11/18/20 17:18 17:18 WBC 23.7 H RBC 4.22 Hgb 12.5 Hct 37.7 MCV 89.3 MCH 29.6 MCHC 33.2 RDW 13.3 Plt Count 477 H MPV 10.2 Neut % (Auto) 89.1 H Lymph % (Auto) 4.0 L [place] % (Auto) 6.5 Eos % (Auto) 0.2 Baso % (Auto) 0.2 Lymph # (Auto) 0.95 L [place] # (Auto) 1.55 H Eos # (Auto) 0.05 Baso # (Auto) 0.05 Seg Neutrophils % Lymphocytes % Monocytes % (Manual) Absolute Neutrophils 21.12 H Platelet Estimate RBC Morphology Sodium 127 L Potassium 3.9 Chloride 92 L Carbon Dioxide 20 L Anion Gap 15.0 BUN 56 H Creatinine 2.3 H GFR Calculation 20 Glucose 448 H Uric Acid Calcium 9.2 Phosphorus Magnesium Total Bilirubin 0.5 Direct Bilirubin GGT AST 25 ALT 20 Alkaline Phosphatase 133 H Lactate Dehydrogenase Troponin T C-Reactive Protein Total Protein 6.9 Albumin 2.6 L Globulin 4.3 H Albumin/Globulin Ratio 0.6 L Triglycerides Procalcitonin TSH SARS-CoV-2 (PCR) A/P Narrative A/P Narrative: A: *LAUREN on CKD III-IV: improved with IVF *Volume depletion: *Encephalopathy: ?pain meds + LAUREN/volume depletion/ suspected infection *?Sepsis: ?source, imaging with piriformis abnormality question infection. -leukocytosis 23k, afebrile *Piriformis abnormality on CT: *DM w/Hyperglycemia: *HTN/HLD: *Hypothyroidism: *Obesity: *Generalized weakness/deconditioning: *Hyponatremia: resolved with IVF P: -IVF -empric Abx, pending BC -UA -needle biopsy piriformis -basal and SSI -Continue home BB, hold ACEI/Aldactone - - - - -PT/OT -ppx: lovenox 30 full code Time Spent With Patient Time: Total time spent is greater than 50% in coordination of care (as documented) at patient's floor/unit and/or counseling patient:
[2020-04-19 08:34] LABS: Band Neutrophils % 7 % (0-10); Lymphocytes % 3 % (15-49); Monocytes % (Manual) 7 % (1-12); Nucleated Red Blood Cells 1 % (0-0); Platelet Estimate NORMAL (Normal); Polychromasia 1+ (None Seen); RBC Morphology ABNORMAL (Normal); Segmented Neutrophils % 83 % (38-78)
[2020-04-19 09:02] LABS: Appearance,Urine CLOUDY (Clear); Bacteria,Urine MANY /hpf (0); Bilirubin,Urine Negative (Negative); Color,Urine YELLOW; Culture Indicated,Urine yes; Glucose,Urine (UA) >=500 mg/dL (Negative); Ketones,Urine Negative (Negative); Leukocyte Esterase,Urine 75 /ug (Negative); Mucus,Urine MANY /hpf; Nitrate,Urine Negative (Negative); Protein,Urine 30 mg/dL (Negative); Uric Acid Crystals,Urine MOD /hpf; Urine Blood 0.03 mg/dL (Negative); Urine Hyaline Cast 12 /lph (0-2); Urine RBC 5 /hpf (0-1); Urine Squamous Epithelial Cell 3 /hpf (0-4); Urine Transitional Epi Cells < 1 /hpf (0-2); Urine WBC 12 /hpf (0-4); Urobilinogen,Urine Negative
[2020-04-19 09:18] LABS: INR 1.3 (0.9-1.1)
[2020-04-19] MEDS ORDERED: VANCOMYCIN PER PHARMACY IV SCH (09:26)
[2020-04-19] MEDS ORDERED: DEXTROSE 31 GM ORAL.SUSP PO PRN (09:26)
[2020-04-19] MEDS ORDERED: ONDANSETRON 4 MG/2 ML VIAL IV PRN (09:26)
[2020-04-19] MEDS ORDERED: POLYETHYLENE GLYCOL 3350 17 GM PACKET PO PRN (09:26)
[2020-04-19] MEDS ORDERED: IPRATROPIUM/ALBUTEROL 3 ML AMPUL.NEB NEB PRN (09:26)
[2020-04-19] MEDS ORDERED: POTASSIUM CHLORIDE 40 MEQ in DEXTROSE 5% IN WATER 500 ML IV PRN (09:26)
[2020-04-19] MEDS ORDERED: DEXTROSE 50% 50 ML VIAL IV PRN (09:26)
[2020-04-19] MEDS ORDERED: MAGNESIUM SULFATE 2 GM/50 ML BAG IV PRN (09:26)
[2020-04-19] MEDS ORDERED: SENNOSIDES 1 TABLET PO PRN (09:26)
[2020-04-19] MEDS ORDERED: POTASSIUM CHLORIDE 20 MEQ TABLET PO PRN ×2 (09:26)
[2020-04-19] MEDS ORDERED: LACTULOSE 20 GM/30 ML ORAL.SOL PO PRN (09:26)
[2020-04-19] MEDS: 0.9 % SODIUM CHLORIDE 1,000 ML IV SCH ×2 (09:57→22:17)
--- NOTE | 2020-04-19 10:39 | Ultrasound Report ---
CLINICAL INFORMATION: ?infection COMPARISON: None. FINDINGS: Liver is normal in size - 14 cm at mid clavicular line and is diffusely hyperechoic suggesting fatty change. As a 3 cm hyperechoic lesion with posterior acoustic enhancement in the lateral segment left hepatic lobe which likely reflects a hemangioma or more focally concentrated fat. Gallbladder wall is normal thickness 2.5 mm. There is a large amount of sludge in the gallbladder, but no stones. Two polyps both less than 5 mm arising from the posterior gallbladder wall Common bile duct is normal 3 mm. Pancreas unremarkable IMPRESSION: 1. Moderate gallbladder sludge but no stones identified. No evidence of cholecystitis. There are two small polyps both approximately 5 mm. These are commonly seen and almost uniformly benign Interpreted and Authenticated by: Jasvir Givens 04/19/20
[2020-04-19] MEDS ORDERED: VANCOMYCIN 1,000 MG in 0.9 % SODIUM CHLORIDE 250 ML IV ONE (11:00)
[2020-04-19] MEDS: DOCUSATE SODIUM 100 MG CAPSULE PO SCH ×2 (11:21→22:15)
[2020-04-19] MEDS: ENOXAPARIN 30 MG/0.3 ML SYRINGE SQ SCH (11:22)
[2020-04-19] MEDS: CEFEPIME 2 GM VIAL IV SCH ×2 (11:23→22:16)
[2020-04-19] MEDS: INSULIN LISPRO 1 UNIT/0.01 ML UNIT SQ SCH ×3 (11:59→22:16)
[2020-04-19] MEDS: 0.9 % SODIUM CHLORIDE 10 ML SYRINGE IV SCH ×2 (12:02→22:17)
[2020-04-19] MEDS ORDERED: fentaNYL 100 MCG/2 ML VIAL IV ONE (14:47)
[2020-04-19] MEDS ORDERED: MIDAZOLAM 2 MG/2 ML VIAL IV ONE (14:47)
[2020-04-19] MEDS ORDERED: LIDOCAINE 1% 20 ML VIAL SQ ONE (15:25)
[2020-04-19 17:08] LABS: Creatine Kinase 60 U/L (24-170)
--- NOTE | 2020-04-19 18:14 | Cat Scan Report ---
CLINICAL INFORMATION: Marked diffuse enlargement of both piriformis muscles with elevated white blood cell count. Evaluate for infection or malignancy COMPARISON: Abdomen and pelvic CT 04/18/2020 TECHNIQUE: The procedure and risks including the possibility of bleeding, infection and inadequate tissue sampling requiring rebiopsy were explained to the patient. She was medicated prior to and during the procedure with versed and fentanyl given in divided doses. Please see medication sheet for dosages. She maintained consciousness during the procedure. Blood pressure and pulse symmetry were monitored. Total sedation time 18 minutes. With the patient in prone position, the enlarged left piriform muscle was first CT localized. The skin overlying the muscle was marked, prepped and locally anesthetized with 1% lidocaine using a 25-gauge spinal needle to the muscle level. A 17-gauge Temno guide needle was advanced under CT guidance into the posterior margin of the inflamed muscle. Through this guide, a 18-gauge Temno needle was used to obtain four core passes. Approximately 5 cc of sanguinous purulent fluid was also aspirated from the guide needle and sent for Gram stain and culture. IMPRESSION: Successful CT-guided biopsy/aspiration of pathologically enlarged left piriformis muscle. 5 cc of hemorrhagic/ purulent fluid was removed suggesting infection. This was sent for Gram stain culture and sensitivity. Core tissue was also sent for pathology. The patient tolerated procedure well without apparent complication. Interpreted and Authenticated by: Jasvir Givens 04/19/20
--- NOTE | 2020-04-19 19:41 | Infectious Disease Consult ---
HPI Data of Consult Consult date: 04/19/20 Requesting physician: Gopi Lipscomb Primary Care Provider: Maria Dolores Fernandes Consult Narrative Chief complaint: hip pain Reason for consult: piriformis muscle infection History of present illness: Miladis is a 74-year-old diabetic who was admitted in the hospital yesterday for weakness. She is hard of hearing and a poor historian. A CT scan was completed of her pelvis yesterday that showed left greater than right enlargement of the piriformis muscle. The left was aspirated by radiology today which revealed 5 cc of fluid. Blood cultures have returned positive from April 18 with a gram-positive cocci. She was started on Levaquin, cefepime, and vancomycin yesterday. She is currently day 2 vancomycin. MRSA screen was obtained but I do not see the results. Dr. Lipscomb asked for consultation to assist with recommendations. She has a penicillin allergy. She also has a history of aortic valve stenosis. No history of rheumatic fever. She had a white count on admit of 23.7 with 89 segs. And a creatinine of 2.3. White count decreased to 23.2 today and a creatinine of 1.4. cc:: CC: Gopi Lipscomb Constitutional Additional comments: General: No complaints of fevers or chills. HEENT: No headaches or sore throat she is hard of hearing. No neck complaints. Pulmonary: No complaints of cough or shortness of breath. Cardiac: No chest pain. GI: No abdominal pain or diarrhea. no complaints of dysuria. Extremities: No complaints of lower extremity edema. No knee pain she does complain of bilateral hip pain. She does report that she has had hip surgery but no artificial joints. PFSH PFSH All Active Problems (Updated 04/19/20 @ 19:46 by Guy Gruber MD) Aortic valve stenosis (Acute) Diabetes mellitus (Acute) Bacteremia (Acute) Muscle abscess (Acute) Acute renal failure (ARF) (Acute) Dehydration (Acute) Hyponatremia (Acute) Abnormal ECG (Acute) Constipation (Acute) Elevated WBC count (Acute) Hypoalbuminemia (Acute) Abnormal computed tomography of pelvis (Acute) Shortness of breath (Chronic) Dysmetabolic syndrome X (Chronic) Chest pain (Chronic) CAD (coronary artery disease) (Chronic) Dyspnea (Chronic) Coronary arteriosclerosis (Chronic) Encounter for Health Maintenance Examination in Adult (Chronic) Acute knee pain (Chronic) Morbid obesity (Chronic) Annual physical exam (Chronic) History of coronary artery bypass graft (Chronic ~11/2012) Obesity (Chronic) Vitamin D deficiency (Chronic) Myocardial infarction acute (Chronic) Hypothyroidism (acquired) (Chronic) Hypertension, essential (Chronic) Hyperlipidemia (Chronic) Fatigue (Chronic) Edema (Chronic) Diabetes mellitus, type II (Chronic) Degenerative joint disease (Chronic) Congestive heart failure (Chronic) Medical History (Updated 04/19/20 @ 19:46 by Guy Gruber MD) Acute knee pain (Chronic) likely due to twisting, able to ambulate without any issues, knee rom normal she likely hyas some OA in the left knee. Lidoderm patches for now. Acute renal failure (Resolved) Annual physical exam (Chronic) 02/27/17 Colonoscopy 2011, unclear when repeat is due, Dr. Box Dexa 2010 Normal PAP not indicated any more Mammogram 2010, 2014, 06/2016 Tdap 11/2014 PCV 11/2014 Hep C screen negative Atherosclerosis (Inactive) CAD (coronary artery disease) (Inactive) 02/16/2014 Dr. Ge Pruitt CAD (coronary artery disease) (Chronic) Chest pain (Inactive) Chest pain (Chronic) Congestive heart failure (Chronic) Coronary arteriosclerosis (Chronic) Degenerative joint disease (Chronic) Diabetes mellitus, type II (Chronic) Dysmetabolic syndrome X (Inactive) Dysmetabolic syndrome X (Chronic) Dyspnea (Chronic) Edema (Chronic) Fatigue (Chronic) Heart disease (Inactive) Arteriosclerotic Hyperlipidemia (Chronic) Hypertension, essential (Chronic) Hypothyroidism (acquired) (Chronic) Morbid obesity (Chronic) Poor physical activity/ poor diet, sits all day and eats cheetos, advised to cut back, Myocardial infarction acute (Chronic) 11/2012 Obesity (Chronic) Shortness of breath (Inactive) Shortness of breath (Chronic) Vitamin D deficiency (Chronic) Surgical History History of cardiac cath (Chronic ~11/28/99) History of cardiac catheterization (Inactive 11/28/99) History of coronary artery bypass graft (Chronic ~11/2012) 11/2012 x3 History of hip surgery (Inactive) Hip fusion. Does not specify date or which hip. History of hip surgery (Chronic) Hip fusion, does no specify date or which hip History of hysterectomy (Inactive) History of hysterectomy (Chronic) History of knee surgery (Inactive) Knee replacement, didn't specify which knee or when History of knee surgery (Chronic) Knee replacement, did not specify which kne or when History of tonsillectomy (Inactive) History of tonsillectomy (Chronic) Family History Mother Family history of cardiac disorder, Onset Age: 77 Family history of cardiac problems Social History (Updated 06/07/19 @ 15:45 by Alexa Hernandez, RD, LD, CD) adopted: Yes occupational status: retired smoking status: Never smoker alcohol intake frequency: does not drink substance use type: does not use MEDS/ALLERGIES Home Medications and Allergies Home Medications Medication Instructions Recorded Confirmed Type aspirin 81 mg chewable tablet 81 mg PO QDAY tab 11/19/14 04/19/20 History naproxen sodium 220 mg capsule 440 mg PO Q12H cap 07/25/15 04/19/20 History bisoprolol fumarate 10 mg tablet 5 mg PO QDAY tab 03/23/18 04/19/20 History ezetimibe 10 mg-simvastatin 80 mg 1 tab PO QDAY 03/23/18 04/19/20 History tablet spironolactone 25 mg tablet 25 mg PO QDAY 03/23/18 04/19/20 History nitroglycerin 0.4 mg sublingual 0.4 mg SUBLINGUAL .COMPLEX PRN #25 01/25/19 04/19/20 Rx tablet tab glipizide 10 mg tablet, extended 10 mg PO QDAY #30 tab 02/09/19 04/19/20 Rx release 24 hr liraglutide 0.6 mg/0.1 mL (18 mg/3 1.8 mg SUB-Q QDAY #27 ml 03/07/19 04/19/20 Rx mL) subcutaneous pen injector ergocalciferol (vitamin D2) 1,250 mcg PO WEEKLY 04/19/20 04/19/20 History levothyroxine 88 mcg PO QDAY 04/19/20 04/19/20 History lisinopril 2.5 mg PO QDAY 04/19/20 04/19/20 History sitagliptin [Januvia] 100 mg PO QDAY 04/19/20 04/19/20 History Allergies Allergy/AdvReac Type Severity Reaction Status Date / Time adhesive tape Allergy Mild Hives Verified 04/19/20 09:54 Penicillins [PENICILLINS] Allergy Mild RASH Verified 04/19/20 09:54 shellfish derived Allergy Mild Hives Verified 04/19/20 09:54 morphine [MORPHINE] Allergy Unknown UNKNOWN Verified 04/18/20 16:36 Thiopental [From Pentothal] Allergy Unknown Unknown Verified 04/18/20 16:36 pioglitazone [From Actos] AdvReac Intermediate heart Verified 04/19/20 09:55 failure chocolate flavor AdvReac Mild Dry Heaves Verified 04/19/20 09:54 felodipine AdvReac Mild Edema Verified 04/19/20 09:54 metformin AdvReac Mild Diarrhea Verified 04/19/20 09:54 Physical Examination Vital Signs Vital signs: Temp Pulse Resp BP Pulse Ox 97.8 F 75 16 120/59 94 04/19/20 17:00 04/19/20 09:26 04/19/20 17:00 04/19/20 17:00 04/19/20 17:00 Additional Exam Additional exam: General: No acute respiratory distress. HEENT: EOMI PERRL sclera anicteric no conjunctival hemorrhages or drainage. Mouth is moist no thrush. Neck is supple no cervical adenopathy. Lungs are clear bilaterally. Heart: Irregularly irregular with 2/6 systolic murmur. Abdomen soft nontender benign. Extremities: No peripheral signs of endocarditis such as [place] lesions or Osler nodes. No splinter hemorrhages. She does have nails painted. No knee effusions or warmth. No lower extremity edema. I am able to raise each leg passively off the bed which does not bother her hips. Skin: She has two small reddened papules on the left anterior fung. Noncellulitic. Results Laboratory Findings CBC and BMP: 04/19/20 04:16 04/19/20 04:16 ABG, PT/INR, D-dimer: PT/INR, D-dimer PT 16.0 sec (11.9-14.5) H 04/19/20 08:17 INR 1.3 (0.9-1.1) H 04/19/20 08:17 Abnormal lab findings: Abnormal Labs 04/18/20 04/18/20 04/18/20 08:22 17:18 17:18 WBC 23.7 H RBC Hgb Hct Plt Count 477 H Neut % (Auto) 89.1 H Lymph % (Auto) 4.0 L Lymph # (Auto) 0.95 L [place] # (Auto) 1.55 H Seg Neutrophils % Lymphocytes % Absolute Neutrophils 21.12 H Nucleated RBCs RBC Morphology Polychromasia PT INR Sodium 127 L Chloride 92 L Carbon Dioxide 20 L BUN 56 H Creatinine 2.3 H Glucose 448 H Alkaline Phosphatase 133 H C-Reactive Protein Albumin 2.6 L Globulin 4.3 H Albumin/Globulin Ratio 0.6 L Procalcitonin Urine Appearance Cloudy A Urine Protein 30 A Urine Glucose (UA) >=500 A Ur Leukocyte Esterase 75 A Urine RBC 5 H Urine WBC 12 H Uric Acid Crystals Mod A Urine Bacteria Many A Hyaline Casts 12 H Urine Mucus Many A 04/18/20 04/18/20 04/18/20 17:18 17:18 17:18 WBC RBC Hgb Hct Plt Count Neut % (Auto) Lymph % (Auto) Lymph # (Auto) [place] # (Auto) Seg Neutrophils % 93 H Lymphocytes % 4 L Absolute Neutrophils Nucleated RBCs RBC Morphology Polychromasia PT INR Sodium Chloride Carbon Dioxide BUN Creatinine Glucose Alkaline Phosphatase C-Reactive Protein 31.30 H Albumin Globulin Albumin/Globulin Ratio Procalcitonin 1.00 H Urine Appearance Urine Protein Urine Glucose (UA) Ur Leukocyte Esterase Urine RBC Urine WBC Uric Acid Crystals Urine Bacteria Hyaline Casts Urine Mucus 04/19/20 04/19/20 04/19/20 04:16 04:16 04:16 WBC 23.2 H RBC 3.83 L Hgb 11.4 L Hct 35.0 L Plt Count Neut % (Auto) 86.8 H Lymph % (Auto) 5.5 L Lymph # (Auto) 1.27 L [place] # (Auto) 1.69 H Seg Neutrophils % 83 H Lymphocytes % 3 L Absolute Neutrophils 20.12 H Nucleated RBCs 1 H RBC Morphology Abnormal A Polychromasia 1+ A PT INR Sodium Chloride Carbon Dioxide 21 L BUN 45 H Creatinine 1.4 H Glucose 254 H Alkaline Phosphatase C-Reactive Protein 26.00 H Albumin 2.1 L Globulin 3.9 H Albumin/Globulin Ratio 0.5 L Procalcitonin Urine Appearance Urine Protein Urine Glucose (UA) Ur Leukocyte Esterase Urine RBC Urine WBC Uric Acid Crystals Urine Bacteria Hyaline Casts Urine Mucus 04/19/20 08:17 WBC RBC Hgb Hct Plt Count Neut % (Auto) Lymph % (Auto) Lymph # (Auto) [place] # (Auto) Seg Neutrophils % Lymphocytes % Absolute Neutrophils Nucleated RBCs RBC Morphology Polychromasia PT 16.0 H INR 1.3 H Sodium Chloride Carbon Dioxide BUN Creatinine Glucose Alkaline Phosphatase C-Reactive Protein Albumin Globulin Albumin/Globulin Ratio Procalcitonin Urine Appearance Urine Protein Urine Glucose (UA) Ur Leukocyte Esterase Urine RBC Urine WBC Uric Acid Crystals Urine Bacteria Hyaline Casts Urine Mucus Microbiology: Microbiology 04/18/20 22:30 Blood Blood Culture - Preliminary Gram positive cocci 04/18/20 20:15 Nose - Both Right and Left MRSA (PCR) - Final A/P Assessment and plan (1) Muscle abscess: Status: Acute (2) Bacteremia: Status: Acute (3) Diabetes mellitus: Status: Acute (4) Aortic valve stenosis: Status: Acute (5) Acute renal failure (ARF): Status: Acute Comment: Miladis is a 74-year-old diabetic who was admitted in the hospital on April 18 for weakness. She was found to have left greater than right piriformis muscle enlargement. Aspiration today by radiology of the left piriformis revealed 5 cc of seropurulent fluid. Gram stain and culture pending. Blood cultures from April 18 are positive for gram-positive cocci. Await final cultures on left piriformis muscle abscess but likely staph aureus. Source coul d be originally left fung that seeded the piriformis muscle. Also need to consider the possibility of endocarditis. She has a history of aortic valve stenosis. I would recommend follow-up blood cultures tomorrow as well as a transthoracic echocardiogram. If staph aureus is methicillin sensitive, transition to IV Ancef 1 g 3 times daily from vancomycin. I am expecting 6 weeks of IV therapy. A PICC line can be placed once blood cultures are negative. If blood cultures are persistently positive, I would recommend proceeding to a XIOMARA. She will also require follow-up imaging of the pelvis m onitoring resolution of the abscesses. I will review tomorrow with Dr. Lipscomb ongoing plan. I would be happy to have patient follow-up with me in clinic when she is discharged from the hospital. Thank you very much for allowing me to be involved in Miladis's consultative care. I just received call from lab and blood culture resulted as MEC A negative staph aureus. Qualifiers: Acute renal failure type: unspecified Qualified Code(s): N17.9 - Acute kidney failure, unspecified Time Spent With Patient Time: Total time spent is greater than 50% in coordination of care (as documented) at patient's floor/unit and/or counseling patient:
[2020-04-20] MEDS: 0.9 % SODIUM CHLORIDE 10 ML SYRINGE IV SCH ×3 (05:17→20:54)
--- NOTE | 2020-04-20 07:18 | Internal Med Progress Note ---
SUBJECTIVE Subjective Patient information: Note initiated : 04/20/20 at 7:10 am Service Date, if different from initiated Date: [] Patient: Miladis Salazar a 74 y/o F admitted on 04/19/20 for Fall, lethargic, not eating or drinking. Chief Complaint: [] Interval history: History of present illness: Ms. Salazar is a 74 year old F History obtained from chart as well as patient, patient poor historian. Patient fell about a week ago onto her bottom. Do not know where she was seen she could not give me that history. She said she got some x-rays and was given some pain medication and went home. Over the past week per she has been increasingly weak decreased oral intake. Lethargic and sleeping a lot at home. In the ED she was quite somnolent. Found to have acute kidney injury. She had a significant leukocytosis of 23,000. She was given IV fluid hydration with improvement in her mentation through the night. Imaging of her pelvis showed a markedly diffuse enlargement of the left piriformis muscle and moderate in the right. Case discussed with radiologist who could not rule out developing fracture of that muscle on imaging recommended a needle biopsy. Patient thinks she has missed some medications lately at home. Her blood glucose was quite elevated. The found to be mildly hyponatremic which improved with IV fluids overnight. CRP was 32. She does have some low back/pelvis pain more on the left side low back. 04/20 Patient feeling better. States she feels "like a person again". Hip pain slowly improving. Awaiting aspiration fluid analysis culture Gram stain. Blood cultures positive for gram-positive likely staph. Review of Systems: denies headache/fever/chills/nausea/vomiting/chest or abdominal pain/c ough/dyspnea/diarrhea. Otherwise see above. Constitutional Vitals: Vital Signs Temp Pulse Resp BP Pulse Ox 97.9 F 92 H 20 135/64 97 04/20/20 03:38 04/20/20 03:38 04/20/20 03:38 04/20/20 03:38 04/20/20 03:38 Period Temp Pulse Resp BP Sys/[place] Pulse Ox Last 24 Hr 97.5 F-98.0 F 75-92 16-30 103-135/56-64 94-100 Intake and Output 04/19/20 04/20/20 04/20/20 21:59 05:59 13:59 Intake Total 100 1165 Output Total 201 Balance 100 964 Weight 86.409 kg Intake & Output: Intake & Output 04/19/20 04/20/20 04/20/20 21:59 05:59 13:59 Intake Total 100 1165 Output Total 201 Balance 100 964 Weight 86.409 kg Intake: IV 925 Sodium Chloride 0.9% 1,000 ml @ 925 75 mls/hr IV .[id number] [facility] Rx#: [id number] Oral 100 240 Output: Void Amount 200 # of times incontinent of urine 1 Other: Urine Appearance Fem Cath Clear Sediment Urine Color Bryan Fem Cath Dark Yellow Exam: General: Alert, Awake, No acute Distress, obese Eyes/N/T: EOMI, Head/Neck: neck supple, CV: RRR, No murmurs, Pulm: Clear b/l, no wheezing/rhonchi/rales Abd: soft, nontender, +BS x4 Ext: no clubbing/cyanosis, trace b/l LE edema Neuro: Alert, no focal deficits, moves all extremities, Skin: warm/dry OBJ DATA Labs CBC & Chem 7: 04/19/20 04:16 04/20/20 05:55 Labs: Abnormal Lab Results 04/19/20 04/19/20 04/19/20 08:17 04:16 04:16 WBC RBC Hgb Hct Plt Count Neut % (Auto) Lymph % (Auto) Lymph # (Auto) [place] # (Auto) Seg Neutrophils % 83 H Lymphocytes % 3 L Absolute Neutrophils Nucleated RBCs 1 H RBC Morphology Abnormal A Polychromasia 1+ A PT 16.0 H INR 1.3 H Sodium Chloride Carbon Dioxide 21 L BUN 45 H Creatinine 1.4 H Glucose 254 H Alkaline Phosphatase C-Reactive Protein 26.00 H Albumin 2.1 L Globulin 3.9 H Albumin/Globulin Ratio 0.5 L Procalcitonin Urine Appearance Urine Protein Urine Glucose (UA) Ur Leukocyte Esterase Urine RBC Urine WBC Uric Acid Crystals Urine Bacteria Hyaline Casts Urine Mucus 04/19/20 04/18/20 04/18/20 04:16 17:18 17:18 WBC 23.2 H RBC 3.83 L Hgb 11.4 L Hct 35.0 L Plt Count Neut % (Auto) 86.8 H Lymph % (Auto) 5.5 L Lymph # (Auto) 1.27 L [place] # (Auto) 1.69 H Seg Neutrophils % 93 H Lymphocytes % 4 L Absolute Neutrophils 20.12 H Nucleated RBCs RBC Morphology Polychromasia PT INR Sodium Chloride Carbon Dioxide BUN Creatinine Glucose Alkaline Phosphatase C-Reactive Protein 31.30 H Albumin Globulin Albumin/Globulin Ratio Procalcitonin Urine Appearance Urine Protein Urine Glucose (UA) Ur Leukocyte Esterase Urine RBC Urine WBC Uric Acid Crystals Urine Bacteria Hyaline Casts Urine Mucus 04/18/20 04/18/20 04/18/20 17:18 17:18 17:18 WBC 23.7 H RBC Hgb Hct Plt Count 477 H Neut % (Auto) 89.1 H Lymph % (Auto) 4.0 L Lymph # (Auto) 0.95 L [place] # (Auto) 1.55 H Seg Neutrophils % Lymphocytes % Absolute Neutrophils 21.12 H Nucleated RBCs RBC Morphology Polychromasia PT INR Sodium 127 L Chloride 92 L Carbon Dioxide 20 L BUN 56 H Creatinine 2.3 H Glucose 448 H Alkaline Phosphatase 133 H C-Reactive Protein Albumin 2.6 L Globulin 4.3 H Albumin/Globulin Ratio 0.6 L Procalcitonin 1.00 H Urine Appearance Urine Protein Urine Glucose (UA) Ur Leukocyte Esterase Urine RBC Urine WBC Uric Acid Crystals Urine Bacteria Hyaline Casts Urine Mucus 04/18/20 08:22 WBC RBC Hgb Hct Plt Count Neut % (Auto) Lymph % (Auto) Lymph # (Auto) [place] # (Auto) Seg Neutrophils % Lymphocytes % Absolute Neutrophils Nucleated RBCs RBC Morphology Polychromasia PT INR Sodium Chloride Carbon Dioxide BUN Creatinine Glucose Alkaline Phosphatase C-Reactive Protein Albumin Globulin Albumin/Globulin Ratio Procalcitonin Urine Appearance Cloudy A Urine Protein 30 A Urine Glucose (UA) >=500 A Ur Leukocyte Esterase 75 A Urine RBC 5 H Urine WBC 12 H Uric Acid Crystals Mod A Urine Bacteria Many A Hyaline Casts 12 H Urine Mucus Many A Meds: Medications Acetaminophen (Tylenol) 650 mg PO Q6HP PRN PRN Reason: PAIN/FEVER > 101 Albuterol/Ipratropium (Duoneb) 3 ml NEB Q4HP PRN PRN Reason: Shortness Of Breath Cefepime HCl (Maxipime) 2 gm IV Q12H [facility]; Protocol Last Admin: 04/19/20 22:16 Dose: 2 gm Documented by: Dextrose (Dextrose 50%) 0 ml IV UD PRN PRN Reason: Hypoglycemia Diagnostic Test (Pha) (Accu-Chek) 1 each FS [facility] Last Admin: 04/19/20 22:15 Dose: 1 each Documented by: Docusate Sodium (Colace) 100 mg PO BID [facility] Last Admin: 04/19/20 22:15 Dose: 100 mg Documented by: Enoxaparin Sodium (Lovenox) 30 mg SQ DAILY [facility] Last Admin: 04/19/20 11:22 Dose: 30 mg Documented by: Glucose (Insta-Glucose) 15 gm PO PRN PRN PRN Reason: Hypoglycemia Potassium Chloride 40 meq/ (Dextrose) 520 mls @ 130 mls/hr IV UD PRN PRN Reason: Potassium < 3 Magnesium Sulfate (Magnesium Sulfate) 2 gm in 50 mls @ 50 mls/hr IV UD PRN PRN Reason: Magnesium </= 1.6 Vancomycin HCl 1,500 mg/ (Sodium Chloride) 500 mls @ 333.3 mls/hr IV Q24H [facility] Insulin Human Lispro (Humalog) 0 unit SQ [facility]; Protocol Last Admin: 04/19/20 22:16 Dose: 2 units Documented by: Lactulose (Cephulac) 20 gm PO DAILYP PRN PRN Reason: Constipation Ondansetron HCl (Zofran) 4 mg IV Q4HP PRN PRN Reason: Nausea And Vomiting Polyethylene Glycol (Miralax) 17 gm PO DAILYP PRN PRN Reason: Constipation Potassium Chloride (Kdur) 40 meq PO UD PRN PRN Reason: Potssium is 3-3.5 Potassium Chloride (Kdur) 40 meq PO UD PRN PRN Reason: Potassium < 3 Senna (Senokot) 2 tab PO DAILYP PRN PRN Reason: Constipation Sodium Chloride (Saline Flush) 10 ml IV Q8 [facility] Last Admin: 04/20/20 05:17 Dose: Not Given Documented by: Vancomycin HCl (Vancomycin Per Pharmacy) 1 order IV UD [facility]; Protocol A/P Narrative A/P Narrative: A: *LAUREN on CKD III-IV: improved with IVF *Volume depletion: *Encephalopathy: ?pain meds + LAUREN/volume depletion/Infection *Bacteremia(GPC): *UTI: *Piriformis muscle abscess: s/p aspiration *Sepsis: 2/2 above *DM w/Hyperglycemia: *HTN/HLD: *Hypothyroidism: *Obesity: *Generalized weakness/deconditioning: *Hyponatremia: resolved with IVF P: -Vanc/Cefepime -Pending UC/body fluid cx, including f/u BC -echo -Dr. Gruber following -basal and SSI -Continue home BB, hold ACEI/Aldactone for now f/u renal fxn - -PT/OT -ppx: lovenox 30 initially full code Time Spent With Patient Time: Total time spent is greater than 50% in coordination of care (as documented) at patient's floor/unit and/or counseling patient: QUALITY VTE Deep Vein Thrombosis/Pulmonary Embolism Present on Admission: No
[2020-04-20] MEDS: INSULIN LISPRO 1 UNIT/0.01 ML UNIT SQ SCH ×4 (08:00→21:21)
[2020-04-20] MEDS: ACETAMINOPHEN 325 MG TABLET PO PRN ×2 (08:24→23:34)
[2020-04-20] MEDS: DOCUSATE SODIUM 100 MG CAPSULE PO SCH ×2 (08:25→21:21)
[2020-04-20] MEDS: CEFEPIME 2 GM VIAL IV SCH ×2 (08:26→21:21)
[2020-04-20] MEDS: VANCOMYCIN 1,500 MG in 0.9 % SODIUM CHLORIDE 500 ML IV SCH (08:27)
[2020-04-20] MEDS: ENOXAPARIN 30 MG/0.3 ML SYRINGE SQ SCH (08:35)
[2020-04-20 08:53] LABS: Basophils # (Auto) 0.04 K/mcL (0.00-0.20); Basophils % (Auto) 0.2 % (0.0-2.0); Eosinophils # (Auto) 0.03 K/mcL (0.00-0.70); Eosinophils % (Auto) 0.1 % (0.0-7.0); Hematocrit 30.2 % (36.0-48.0); Hemoglobin 9.8 g/dL (12.0-15.0); Lymphocytes # (Auto) 1.12 K/mcL (1.50-4.80); Mean Cell Volume 92.1 fL (80.0-100.0); Mean Corpuscular HGB Conc 32.5 g/dL (31.0-36.0); Mean Platelet Volume 10.9 fL (7.4-10.4); Monocytes % (Auto) 7.2 % (1.0-12.0); Neutrophils % (Auto) 87.5 % (38.0-78.0); Platelet Count 355 K/mcL (140-440); RBC 3.28 M/mcL (4.00-5.20); Red Cell Distribution Width 13.7 % (11.5-14.5); WBC 22.2 K/mcL (4.5-11.0)
[2020-04-20 11:37] LABS: ALT/SGPT 17 U/L (<40); AST/SGOT 29 U/L (<32); Albumin 1.8 gm/dL (3.2-5.2); Albumin/Globulin Ratio 0.4 (1.0-2.3); Alkaline Phosphatase 121 U/L (39-117); Bilirubin,Direct < 0.2 mg/dL (<0.3); Bilirubin,Total 0.6 mg/dL (0.1-1.0); Blood Urea Nitrogen 28 mg/dL (8-23); Calcium 8.6 mg/dL (8.6-10.4); Carbon Dioxide 15 mmol/L (22-30); Chloride 103 mmol/L (96-108); Globulin 4.6 gm/dL (2.2-3.7); Glomerular Filtration Rate 44; Glucose 236 mg/dL (70-105); Lactate Dehydrogenase 456 U/L (135-225); Phosphorous 2.6 mg/dL (2.5-4.5); Triglycerides 120 mg/dL (<150); Uric Acid 4.7 mg/dL (2.5-8.0)
[2020-04-20] MEDS ORDERED: MAGNESIUM SULFATE 2 GM/50 ML BAG IV ONE (12:00)
[2020-04-21] MEDS: 0.9 % SODIUM CHLORIDE 10 ML SYRINGE IV SCH ×3 (04:54→22:23)
[2020-04-21] MEDS: INSULIN LISPRO 1 UNIT/0.01 ML UNIT SQ SCH ×4 (06:40→22:22)
[2020-04-21] MEDS: DOCUSATE SODIUM 100 MG CAPSULE PO SCH ×2 (08:44→22:22)
[2020-04-21] MEDS: CEFEPIME 2 GM VIAL IV SCH ×2 (08:45→22:21)
[2020-04-21] MEDS: ENOXAPARIN 30 MG/0.3 ML SYRINGE SQ SCH (08:53)
[2020-04-21] MEDS: ACETAMINOPHEN 325 MG TABLET PO PRN ×3 (09:06→22:21)
[2020-04-21] MEDS ORDERED: FUROSEMIDE 40 MG/4 ML VIAL IV ONE (09:21)
[2020-04-21 09:35] LABS: Blood Urea Nitrogen 23 mg/dL (8-23); Calcium 8.5 mg/dL (8.6-10.4); Carbon Dioxide 15 mmol/L (22-30); Chloride 101 mmol/L (96-108); Glomerular Filtration Rate 55; Glucose 157 mg/dL (70-105)
[2020-04-21] MEDS: VANCOMYCIN 1,500 MG in 0.9 % SODIUM CHLORIDE 500 ML IV SCH (10:00)
[2020-04-21 11:55] LABS: Basophils # (Auto) 0.05 K/mcL (0.00-0.20); Basophils % (Auto) 0.3 % (0.0-2.0); Eosinophils % (Auto) 0.5 % (0.0-7.0); Hemoglobin 12.9 g/dL (12.0-15.0); Lymphocytes # (Auto) 1.09 K/mcL (1.50-4.80); Lymphocytes % (Auto) 5.6 % (15.0-49.0); Mean Corpuscular HGB Conc 31.5 g/dL (31.0-36.0); Mean Platelet Volume 10.9 fL (7.4-10.4); Monocytes # (Auto) 0.92 K/mcL (0.10-0.90); Monocytes % (Auto) 4.7 % (1.0-12.0); Neutrophils % (Auto) 88.9 % (38.0-78.0); Platelet Count 440 K/mcL (140-440); RBC 4.41 M/mcL (4.00-5.20); Red Cell Distribution Width 13.9 % (11.5-14.5); WBC 19.4 K/mcL (4.5-11.0)
--- NOTE | 2020-04-21 19:42 | Internal Med Progress Note ---
SUBJECTIVE Subjective Patient information: Note initiated : 04/21/20 at 7:37 pm Service Date, if different from initiated Date: [] Patient: Miladis Salazar a 74 y/o F admitted on 04/19/20 for Fall, lethargic, not eating or drinking. Chief Complaint: History of present illness: Ms. Salazar is a 74 year old F History obtained from chart as well as patient, patient poor historian. Patient fell about a week ago onto her bottom. Do not know where she was seen she could not give me that history. She said she got some x-rays and was given some pain medication and went home. Over the past week per she has been increasingly weak decreased oral intake. Lethargic and sleeping a lot at home. In the ED she was quite somnolent. Found to have acute kidney injury. She had a significant leukocytosis of 23,000. She was given IV fluid hydration with improvement in her mentation through the night. Imaging of her pelvis showed a markedly diffuse enlargement of the left piriformis muscle and moderate in the right. Case discussed with radiologist who could not rule out developing fracture of that muscle on imaging recommended a needle biopsy. Patient thinks she has missed some medications lately at home. Her blood glucose was quite elevated. The found to be mildly hyponatremic which improved with IV fluids overnight. CRP was 32. She does have some low back/pelvis pain more on the left side low back. 04/20 Patient feeling better. States she feels "like a person again". Hip pain slowly improving. Awaiting aspiration fluid analysis culture Gram stain. Blood cultures positive for gram-positive likely staph. 04/21-patient resting comfortably. Surveillance blood culture positive for gram-positive cocci 04/20. On antibiotic coverage per ID on cefepime/vancomycin. White count at 19.4, sodium 130 CRP 26.5 Constitutional Vitals: Vital Signs Temp Pulse Resp BP Pulse Ox 98.3 F 88 18 111/62 99 04/21/20 18:57 04/21/20 19:00 04/21/20 19:00 04/21/20 18:57 04/21/20 19:00 Period Temp Pulse Resp BP Sys/Gunn Pulse Ox Last 24 Hr 97.6 F-98.8 F 74-91 15-22 106-158/60-73 97-100 Intake and Output 04/21/20 04/21/20 04/21/20 05:59 13:59 21:59 Intake Total 120 740 240 Output Total 703 801 Balance 120 37 -561 Weight 85.757 kg Patient Weight 04/22/20 05:59 Weight 85.757 kg Resting comfortably Nonlabored breathing No anxiety Intake & Output: Intake & Output 04/21/20 04/21/20 04/21/20 05:59 13:59 21:59 Intake Total 120 740 240 Output Total 703 801 Balance 120 37 -561 Weight 85.757 kg Intake: IV 500 Vancomycin 1,500 mg In Sodium 500 Chloride 0.9% 500 ml @ 333.3 mls/hr IV Q24H [facility] Rx#: [id number] Oral 240 240 GI Tube Flush 120 Output: Void Amount 700 800 # of times incontinent of urine 3 1 Other: Meal Lunch Dinner Percent of Meal Consumed 25% 25% Feeding Ability Independent Independent Urine Appearance Clear Clear Fem Cath Clear Sediment Urine Color Dark Yellow Dark Yellow Fem Cath Dark Yellow Urine Odor Normal Normal Stool Size Large Stool Color Brown Stool Consistency Formed OBJ DATA Labs CBC & Chem 7: 04/21/20 09:35 04/21/20 08:35 Labs: Abnormal Lab Results 04/21/20 04/21/20 04/20/20 09:35 08:35 10:15 WBC 19.4 H RBC Hgb Hct MPV 10.9 H Neut % (Auto) 88.9 H Lymph % (Auto) 5.6 L Lymph # (Auto) 1.09 L [place] # (Auto) 0.92 H Seg Neutrophils % Lymphocytes % Absolute Neutrophils 17.24 H Nucleated RBCs RBC Morphology Polychromasia PT INR Sodium 130 L 132 L Carbon Dioxide 15 L 15 L BUN 28 H Creatinine 1.2 H Glucose 157 H 236 H Calcium 8.5 L Magnesium 1.5 L Alkaline Phosphatase 121 H Lactate Dehydrogenase 456 H C-Reactive Protein 26.50 H Albumin 1.8 L Globulin 4.6 H Albumin/Globulin Ratio 0.4 L Procalcitonin Urine Appearance Urine Protein Urine Glucose (UA) Ur Leukocyte Esterase Urine RBC Urine WBC Uric Acid Crystals Urine Bacteria Hyaline Casts Urine Mucus 04/20/20 04/20/20 04/20/20 07:33 05:56 05:55 WBC 22.2 H RBC 3.28 L Hgb 9.8 L Hct 30.2 L MPV 10.9 H Neut % (Auto) 87.5 H Lymph % (Auto) 5.0 L Lymph # (Auto) 1.12 L [place] # (Auto) 1.60 H Seg Neutrophils % Lymphocytes % Absolute Neutrophils 19.42 H Nucleated RBCs RBC Morphology Polychromasia PT INR Sodium Carbon Dioxide BUN Creatinine Glucose Calcium Magnesium Alkaline Phosphatase Lactate Dehydrogenase C-Reactive Protein 30.00 H Albumin Globulin Albumin/Globulin Ratio Procalcitonin 0.40 H Urine Appearance Urine Protein Urine Glucose (UA) Ur Leukocyte Esterase Urine RBC Urine WBC Uric Acid Crystals Urine Bacteria Hyaline Casts Urine Mucus 04/19/20 04/19/20 04/19/20 08:17 04:16 04:16 WBC RBC Hgb Hct MPV Neut % (Auto) Lymph % (Auto) Lymph # (Auto) [place] # (Auto) Seg Neutrophils % 83 H Lymphocytes % 3 L Absolute Neutrophils Nucleated RBCs 1 H RBC Morphology Abnormal A Polychromasia 1+ A PT 16.0 H INR 1.3 H Sodium Carbon Dioxide 21 L BUN 45 H Creatinine 1.4 H Glucose 254 H Calcium Magnesium Alkaline Phosphatase Lactate Dehydrogenase C-Reactive Protein 26.00 H Albumin 2.1 L Globulin 3.9 H Albumin/Globulin Ratio 0.5 L Procalcitonin Urine Appearance Urine Protein Urine Glucose (UA) Ur Leukocyte Esterase Urine RBC Urine WBC Uric Acid Crystals Urine Bacteria Hyaline Casts Urine Mucus 04/19/20 04/18/20 04/18/20 04:16 17:18 17:18 WBC 23.2 H RBC 3.83 L Hgb 11.4 L Hct 35.0 L MPV Neut % (Auto) 86.8 H Lymph % (Auto) 5.5 L Lymph # (Auto) 1.27 L [place] # (Auto) 1.69 H Seg Neutrophils % 93 H Lymphocytes % 4 L Absolute Neutrophils 20.12 H Nucleated RBCs RBC Morphology Polychromasia PT INR Sodium Carbon Dioxide BUN Creatinine Glucose Calcium Magnesium Alkaline Phosphatase Lactate Dehydrogenase C-Reactive Protein 31.30 H Albumin Globulin Albumin/Globulin Ratio Procalcitonin Urine Appearance Urine Protein Urine Glucose (UA) Ur Leukocyte Esterase Urine RBC Urine WBC Uric Acid Crystals Urine Bacteria Hyaline Casts Urine Mucus 04/18/20 08:22 WBC RBC Hgb Hct MPV Neut % (Auto) Lymph % (Auto) Lymph # (Auto) [place] # (Auto) Seg Neutrophils % Lymphocytes % Absolute Neutrophils Nucleated RBCs RBC Morphology Polychromasia PT INR Sodium Carbon Dioxide BUN Creatinine Glucose Calcium Magnesium Alkaline Phosphatase Lactate Dehydrogenase C-Reactive Protein Albumin Globulin Albumin/Globulin Ratio Procalcitonin Urine Appearance Cloudy A Urine Protein 30 A Urine Glucose (UA) >=500 A Ur Leukocyte Esterase 75 A Urine RBC 5 H Urine WBC 12 H Uric Acid Crystals Mod A Urine Bacteria Many A Hyaline Casts 12 H Urine Mucus Many A Meds: Medications Acetaminophen (Tylenol) 650 mg PO Q6HP PRN PRN Reason: PAIN/FEVER > 101 Last Admin: 04/21/20 16:22 Dose: 650 mg Documented by: Albuterol/Ipratropium (Duoneb) 3 ml NEB Q4HP PRN PRN Reason: Shortness Of Breath Cefepime HCl (Maxipime) 2 gm IV Q12H [facility]; Protocol Last Admin: 04/21/20 08:45 Dose: 2 gm Documented by: Dextrose (Dextrose 50%) 0 ml IV UD PRN PRN Reason: Hypoglycemia Diagnostic Test (Pha) (Accu-Chek) 1 each FS [facility] Last Admin: 04/21/20 16:14 Dose: 1 each Documented by: Docusate Sodium (Colace) 100 mg PO BID [facility] Last Admin: 04/21/20 08:44 Dose: 100 mg Documented by: Enoxaparin Sodium (Lovenox) 30 mg SQ DAILY [facility] Last Admin: 04/21/20 08:53 Dose: 30 mg Documented by: Glucose (Insta-Glucose) 15 gm PO PRN PRN PRN Reason: Hypoglycemia Potassium Chloride 40 meq/ (Dextrose) 520 mls @ 130 mls/hr IV UD PRN PRN Reason: Potassium < 3 Magnesium Sulfate (Magnesium Sulfate) 2 gm in 50 mls @ 50 mls/hr IV UD PRN PRN Reason: Magnesium </= 1.6 Vancomycin HCl 1,500 mg/ (Sodium Chloride) 500 mls @ 333.3 mls/hr IV Q24H [facility] Last Infusion: 04/21/20 11:31 Dose: Infused Documented by: Insulin Human Lispro (Humalog) 0 unit SQ [facility]; Protocol Last Admin: 04/21/20 16:21 Dose: 8 units Documented by: Lactulose (Cephulac) 20 gm PO DAILYP PRN PRN Reason: Constipation Ondansetron HCl (Zofran) 4 mg IV Q4HP PRN PRN Reason: Nausea And Vomiting Polyethylene Glycol (Miralax) 17 gm PO DAILYP PRN PRN Reason: Constipation Potassium Chloride (Kdur) 40 meq PO UD PRN PRN Reason: Potssium is 3-3.5 Potassium Chloride (Kdur) 40 meq PO UD PRN PRN Reason: Potassium < 3 Senna (Senokot) 2 tab PO DAILYP PRN PRN Reason: Constipation Sodium Chloride (Saline Flush) 10 ml IV Q8 [facility] Last Admin: 04/21/20 12:57 Dose: Not Given Documented by: Vancomycin HCl (Vancomycin Per Pharmacy) 1 order IV UD [facility]; Protocol A/P Narrative A/P Narrative: * -Staph aureus bacteremia-surveillance cultures positive. ID on board. On vancomycin. * Severe sepsis secondary to bacteremia. On antibiotic coverage. White count downtrending at 22,000. 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 Clinically improved * Encephalopathy: ?pain meds + LAUREN/volume depletion/Infection. Clinical improvement noted * Complicated*UTI: On antibiotic coverage. * Piriformis muscle abscess: s/p aspiration. Staph aureus on cultures * DM w/Hyperglycemia: Basal prandial insulin/CCD * HTN/HLD: * Hypothyroidism: * Obesity: * Generalized weakness/deconditioning: * Prophylaxis enoxaparin Plan: -Vanc/Cefepime -Surveillance cultures -echo -Dr. Gruber following -basal and SSI -Continue home BB, hold ACEI/Aldactone for now f/u renal fxn -PT/OT Time Spent With Patient Time: Total time spent is greater than 50% in coordination of care (as documented) at patient's floor/unit and/or counseling patient: QUALITY VTE Deep Vein Thrombosis/Pulmonary Embolism Present on Admission: No
[2020-04-22] MEDS: 0.9 % SODIUM CHLORIDE 10 ML SYRINGE IV SCH ×3 (05:45→20:11)
[2020-04-22 08:02] LABS: Basophils # (Auto) 0.05 K/mcL (0.00-0.20); Basophils % (Auto) 0.3 % (0.0-2.0); Eosinophils # (Auto) 0.14 K/mcL (0.00-0.70); Eosinophils % (Auto) 0.9 % (0.0-7.0); Hematocrit 36.1 % (36.0-48.0); Hemoglobin 11.8 g/dL (12.0-15.0); Lymphocytes # (Auto) 1.57 K/mcL (1.50-4.80); Lymphocytes % (Auto) 9.6 % (15.0-49.0); Mean Cell Volume 90.7 fL (80.0-100.0); Mean Corpuscular HGB Conc 32.7 g/dL (31.0-36.0); Mean Platelet Volume 10.4 fL (7.4-10.4); Neutrophils % (Auto) 81.2 % (38.0-78.0); Platelet Count 430 K/mcL (140-440); RBC 3.98 M/mcL (4.00-5.20); Red Cell Distribution Width 14.1 % (11.5-14.5); WBC 16.3 K/mcL (4.5-11.0)
[2020-04-22] MEDS: INSULIN LISPRO 1 UNIT/0.01 ML UNIT SQ SCH ×4 (08:08→20:12)
[2020-04-22 08:28] LABS: ALT/SGPT 15 U/L (<40); AST/SGOT 19 U/L (<32); Albumin 2.1 gm/dL (3.2-5.2); Albumin/Globulin Ratio 0.5 (1.0-2.3); Alkaline Phosphatase 106 U/L (39-117); Bilirubin,Direct < 0.2 mg/dL (<0.3); Bilirubin,Total 0.3 mg/dL (0.1-1.0); Blood Urea Nitrogen 24 mg/dL (8-23); Calcium 8.7 mg/dL (8.6-10.4); Carbon Dioxide 20 mmol/L (22-30); Chloride 102 mmol/L (96-108); Globulin 4.2 gm/dL (2.2-3.7); Glomerular Filtration Rate 55; Glucose 146 mg/dL (70-105); Lactate Dehydrogenase 202 U/L (135-225); Phosphorous 2.2 mg/dL (2.5-4.5); Triglycerides 110 mg/dL (<150); Uric Acid 3.3 mg/dL (2.5-8.0)
[2020-04-22] MEDS ORDERED: EZETIMIBE SIMVASTATIN PO SCH (09:00)
[2020-04-22] MEDS: ASPIRIN 81 MG TAB.CHEW PO SCH (09:12)
[2020-04-22] MEDS: LEVOTHYROXINE 88 MCG TABLET PO SCH (09:13)
[2020-04-22] MEDS: sitaGLIPtin 100 MG TABLET PO SCH (09:13)
[2020-04-22] MEDS: ACETAMINOPHEN 325 MG TABLET PO PRN (09:13)
[2020-04-22] MEDS: DOCUSATE SODIUM 100 MG CAPSULE PO SCH ×2 (09:13→20:10)
[2020-04-22] MEDS: SPIRONOLACTONE 25 MG TABLET PO SCH (09:13)
[2020-04-22] MEDS: BISOPROLOL 5 MG TABLET PO SCH (09:13)
[2020-04-22] MEDS: CEFEPIME 2 GM VIAL IV SCH ×2 (09:16→20:10)
[2020-04-22] MEDS: ENOXAPARIN 30 MG/0.3 ML SYRINGE SQ SCH (09:16)
[2020-04-22] MEDS: VANCOMYCIN 1,500 MG in 0.9 % SODIUM CHLORIDE 500 ML IV SCH (09:19)
[2020-04-22] MEDS: LIRAGLUTIDE 1.8 MG SUB-Q SCH (09:20)
[2020-04-22] MEDS ORDERED: FUROSEMIDE 40 MG/4 ML VIAL IV ONE (09:48)
--- NOTE | 2020-04-22 10:00 | Internal Med Progress Note ---
SUBJECTIVE Subjective Patient information: Note initiated : 04/22/20 at 9:51 am Service Date, if different from initiated Date: [] Patient: Miladis Salazar a 74 y/o F admitted on 04/19/20 for Fall, lethargic, not eating or drinking. Chief Complaint: History of present illness: Ms. Salazar is a 74 year old F History obtained from chart as well as patient, patient poor historian. Patient fell about a week ago onto her bottom. Do not know where she was seen she could not give me that history. She said she got some x-rays and was given some pain medication and went home. Over the past week per she has been increasingly weak decreased oral intake. Lethargic and sleeping a lot at home. In the ED she was quite somnolent. Found to have acute kidney injury. She had a significant leukocytosis of 23,000. She was given IV fluid hydration with improvement in her mentation through the night. Imaging of her pelvis showed a markedly diffuse enlargement of the left piriformis muscle and moderate in the right. Case discussed with radiologist who could not rule out developing fracture of that muscle on imaging recommended a needle biopsy. Patient thinks she has missed some medications lately at home. Her blood glucose was quite elevated. The found to be mildly hyponatremic which improved with IV fluids overnight. CRP was 32. She does have some low back/pelvis pain more on the left side low back. 04/20 Patient feeling better. States she feels "like a person again". Hip pain slowly improving. Awaiting aspiration fluid analysis culture Gram stain. Blood cultures positive for gram-positive likely staph. 04/21-patient resting comfortably. Surveillance blood culture positive for gram-positive cocci 04/20. On antibiotic coverage per ID on cefepime/vancomycin. White count at 19.4, sodium 130 CRP 26.5 04/22-surveillance cultures positive. Repeat cultures pending. Continuing on antibiotic coverage per ID. White count down to 16,000. Appears fatigued and lethargic. No anxiety. Continuing bank and cefepime. Blood sugars at goal. Echocardiogram negative for vegetations Constitutional Vitals: Vital Signs Temp Pulse Resp BP Pulse Ox 98.4 F 77 16 159/77 99 04/22/20 08:04 04/22/20 08:04 04/22/20 08:04 04/22/20 08:04 04/22/20 08:04 Period Temp Pulse Resp BP Sys/Gunn Pulse Ox Last 24 Hr 97.6 F-98.8 F 77-91 - 111-159/60-77 97-100 Intake and Output 04/21/20 04/22/20 04/22/20 21:59 05:59 13:59 Intake Total 240 400 Output Total 801 600 200 Balance -561 -200 -200 Weight 85.757 kg Drowsy Nonlabored breathing No anxiety Nondistended abdomen Intake & Output: Intake & Output 04/21/20 04/22/20 04/22/20 21:59 05:59 13:59 Intake Total 240 400 Output Total 801 600 200 Balance -561 -200 -200 Weight 85.757 kg Intake: Oral 240 400 Output: Void Amount 800 600 200 # of times incontinent of urine 1 Other: Meal Dinner Percent of Meal Consumed 25% Feeding Ability Independent Urine Appearance Clear Clear Cloudy Urine Color Dark Yellow Dark Yellow Dark Yellow Urine Odor Normal Normal Normal Stool Size Large Stool Color Brown Stool Consistency Formed OBJ DATA Labs CBC & Chem 7: 04/22/20 06:54 04/22/20 06:54 Labs: Abnormal Lab Results 04/22/20 04/22/20 04/21/20 06:54 06:54 09:35 WBC 16.3 H 19.4 H RBC 3.98 L Hgb 11.8 L Hct MPV 10.9 H Neut % (Auto) 81.2 H 88.9 H Lymph % (Auto) 9.6 L 5.6 L Lymph # (Auto) 1.09 L [place] # (Auto) 1.30 H 0.92 H Absolute Neutrophils 13.28 H 17.24 H Sodium Carbon Dioxide 20 L BUN 24 H Creatinine Glucose 146 H Calcium Phosphorus 2.2 L Magnesium Alkaline Phosphatase Lactate Dehydrogenase C-Reactive Protein Albumin 2.1 L Globulin 4.2 H Albumin/Globulin Ratio 0.5 L Procalcitonin 04/21/20 04/20/20 04/20/20 08:35 10:15 07:33 WBC 22.2 H RBC 3.28 L Hgb 9.8 L Hct 30.2 L MPV 10.9 H Neut % (Auto) 87.5 H Lymph % (Auto) 5.0 L Lymph # (Auto) 1.12 L [place] # (Auto) 1.60 H Absolute Neutrophils 19.42 H Sodium 130 L 132 L Carbon Dioxide 15 L 15 L BUN 28 H Creatinine 1.2 H Glucose 157 H 236 H Calcium 8.5 L Phosphorus Magnesium 1.5 L Alkaline Phosphatase 121 H Lactate Dehydrogenase 456 H C-Reactive Protein 26.50 H Albumin 1.8 L Globulin 4.6 H Albumin/Globulin Ratio 0.4 L Procalcitonin 04/20/20 04/20/20 05:56 05:55 WBC RBC Hgb Hct MPV Neut % (Auto) Lymph % (Auto) Lymph # (Auto) [place] # (Auto) Absolute Neutrophils Sodium Carbon Dioxide BUN Creatinine Glucose Calcium Phosphorus Magnesium Alkaline Phosphatase Lactate Dehydrogenase C-Reactive Protein 30.00 H Albumin Globulin Albumin/Globulin Ratio Procalcitonin 0.40 H Meds: Medications Acetaminophen (Tylenol) 650 mg PO Q6HP PRN PRN Reason: PAIN/FEVER > 101 Last Admin: 04/22/20 09:13 Dose: 650 mg Documented by: Albuterol/Ipratropium (Duoneb) 3 ml NEB Q4HP PRN PRN Reason: Shortness Of Breath Aspirin (Aspirin) 81 mg PO QDAY [facility] Last Admin: 04/22/20 09:12 Dose: 81 mg Documented by: Bisoprolol Fumarate (Zebeta) 5 mg PO DAILY [facility] Last Admin: 04/22/20 09:13 Dose: 5 mg Documented by: Cefepime HCl (Maxipime) 2 gm IV Q12H [facility]; Protocol Last Admin: 04/22/20 09:16 Dose: 2 gm Documented by: Dextrose (Dextrose 50%) 0 ml IV UD PRN PRN Reason: Hypoglycemia Diagnostic Test (Pha) (Accu-Chek) 1 each FS [facility]S [facility] Last Admin: 04/22/20 08:06 Dose: 1 each Documented by: Docusate Sodium (Colace) 100 mg PO BID [facility] Last Admin: 04/22/20 09:13 Dose: 100 mg Documented by: Ezetimibe (Zetia) 10 mg PO HS [facility] Enoxaparin Sodium (Lovenox) 30 mg SQ DAILY [facility] Last Admin: 04/22/20 09:16 Dose: 30 mg Documented by: Ergocalciferol (Drisdol) unit PO WEEKLY [facility] Glucose (Insta-Glucose) 15 gm PO PRN PRN PRN Reason: Hypoglycemia Potassium Chloride 40 meq/ (Dextrose) 520 mls @ 130 mls/hr IV UD PRN PRN Reason: Potassium < 3 Magnesium Sulfate (Magnesium Sulfate) 2 gm in 50 mls @ 50 mls/hr IV UD PRN PRN Reason: Magnesium </= 1.6 Vancomycin HCl 1,500 mg/ (Sodium Chloride) 500 mls @ 333.3 mls/hr IV Q24H [facility] Last Admin: 04/22/20 09:19 Dose: 333 mls/hr Documented by: Insulin Human Lispro (Humalog) 0 unit SQ [facility]CHS [facility]; Protocol Last Admin: 04/22/20 08:08 Dose: Not Given Documented by: Lactulose (Cephulac) 20 gm PO DAILYP PRN PRN Reason: Constipation Levothyroxine Sodium (Synthroid) 88 mcg PO QDAY [facility] Last Admin: 04/22/20 09:13 Dose: 88 mcg Documented by: Ondansetron HCl (Zofran) 4 mg IV Q4HP PRN PRN Reason: Nausea And Vomiting Liraglutide [Victoza 3-Jero] 1.8 Mg Syringe 1.8 dose SUB-Q QDAY [facility] Last Admin: 04/22/20 09:20 Dose: Not Given Documented by: Polyethylene Glycol (Miralax) 17 gm PO DAILYP PRN PRN Reason: Constipation Potassium Chloride (Kdur) 40 meq PO UD PRN PRN Reason: Potssium is 3-3.5 Potassium Chloride (Kdur) 40 meq PO UD PRN PRN Reason: Potassium < 3 Senna (Senokot) 2 tab PO DAILYP PRN PRN Reason: Constipation Simvastatin (Zocor) 80 mg PO [facility] Sitagliptin Phosphate (Januvia) 100 mg PO QDAY [facility] Last Admin: 04/22/20 09:13 Dose: 100 mg Documented by: Sodium Chloride (Saline Flush) 10 ml IV Q8 [facility] Last Admin: 04/22/20 05:45 Dose: 10 ml Documented by: Spironolactone (Aldactone) 25 mg PO QDAY [facility] Last Admin: 04/22/20 09:13 Dose: 25 mg Documented by: Vancomycin HCl (Vancomycin Per Pharmacy) 1 order IV UD [facility]; Protocol A/P Assessment and plan (1) Bacteremia: Status: Acute Narrative A/P Narrative: * Staph aureus bacteremia-surveillance cultures positive. ID on board. On vancomycin. * Severe sepsis secondary to bacteremia. On antibiotic coverage. White count downtrending at 22,000. 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 Clinically improved * Encephalopathy: ?pain meds + LAUREN/volume depletion/Infection. Clinical improvement noted * Complicated*UTI: On antibiotic coverage. * Piriformis muscle abscess: s/p aspiration. Staph aureus on cultures * DM w/Hyperglycemia: Basal prandial insulin/CCD * HTN/HLD: On ezetimibe/spironolactone/bisoprolol * Hypothyroidism: On thyroxine * Obesity: Directed therapies * Generalized weakness/deconditioning: PT OT nutrition support * Prophylaxis enoxaparin Plan: -Continue vanc/Cefepime -Repeat surveillance culture -Antibiotics to continue per ID Dr. Gruber -Continue home BB/Aldactone, hold ACEI -PT/OT -Discharge planning Time Spent With Patient Time: Total time spent is greater than 50% in coordination of care (as documented) at patient's floor/unit and/or counseling patient: QUALITY VTE Deep Vein Thrombosis/Pulmonary Embolism Present on Admission: No
[2020-04-22] MEDS: EZETIMIBE 10 MG TABLET PO SCH (20:10)
[2020-04-22] MEDS: SIMVASTATIN 40 MG TABLET PO SCH (20:11)
[2020-04-23] MEDS: 0.9 % SODIUM CHLORIDE 10 ML SYRINGE IV SCH ×3 (04:11→21:42)
[2020-04-23 06:20] LABS: Basophils # (Auto) 0.05 K/mcL (0.00-0.20); Basophils % (Auto) 0.3 % (0.0-2.0); Eosinophils # (Auto) 0.13 K/mcL (0.00-0.70); Eosinophils % (Auto) 0.9 % (0.0-7.0); Hemoglobin 11.6 g/dL (12.0-15.0); Lymphocytes # (Auto) 1.44 K/mcL (1.50-4.80); Lymphocytes % (Auto) 9.9 % (15.0-49.0); Mean Cell Volume 90.2 fL (80.0-100.0); Mean Corpuscular HGB Conc 32.2 g/dL (31.0-36.0); Monocytes % (Auto) 8.9 % (1.0-12.0); Platelet Count 376 K/mcL (140-440); RBC 3.99 M/mcL (4.00-5.20); Red Cell Distribution Width 14.1 % (11.5-14.5); WBC 14.6 K/mcL (4.5-11.0)
[2020-04-23 06:48] LABS: ALT/SGPT 21 U/L (<40); AST/SGOT 28 U/L (<32); Albumin 1.9 gm/dL (3.2-5.2); Albumin/Globulin Ratio 0.5 (1.0-2.3); Alkaline Phosphatase 107 U/L (39-117); Bilirubin,Direct < 0.2 mg/dL (<0.3); Bilirubin,Total 0.3 mg/dL (0.1-1.0); Blood Urea Nitrogen 26 mg/dL (8-23); Calcium 8.4 mg/dL (8.6-10.4); Carbon Dioxide 20 mmol/L (22-30); Chloride 102 mmol/L (96-108); Glomerular Filtration Rate 49; Glucose 215 mg/dL (70-105); Lactate Dehydrogenase 206 U/L (135-225); Phosphorous 2.3 mg/dL (2.5-4.5); Triglycerides 125 mg/dL (<150); Uric Acid 3.9 mg/dL (2.5-8.0)
[2020-04-23] MEDS: INSULIN LISPRO 1 UNIT/0.01 ML UNIT SQ SCH ×4 (08:03→21:41)
[2020-04-23] MEDS: DOCUSATE SODIUM 100 MG CAPSULE PO SCH ×2 (08:05→21:42)
[2020-04-23] MEDS: sitaGLIPtin 100 MG TABLET PO SCH (08:05)
[2020-04-23] MEDS: BISOPROLOL 5 MG TABLET PO SCH (08:05)
[2020-04-23] MEDS: ASPIRIN 81 MG TAB.CHEW PO SCH (08:05)
[2020-04-23] MEDS: LEVOTHYROXINE 88 MCG TABLET PO SCH (08:05)
[2020-04-23] MEDS: SPIRONOLACTONE 25 MG TABLET PO SCH (08:05)
[2020-04-23] MEDS: ENOXAPARIN 30 MG/0.3 ML SYRINGE SQ SCH (08:08)
[2020-04-23] MEDS: LIRAGLUTIDE 1.8 MG SUB-Q SCH (08:09)
[2020-04-23] MEDS: CEFEPIME 2 GM VIAL IV SCH ×2 (08:19→21:42)
[2020-04-23] MEDS: VANCOMYCIN 1,500 MG in 0.9 % SODIUM CHLORIDE 500 ML IV SCH (08:23)
--- NOTE | 2020-04-23 13:27 | Internal Med Progress Note ---
SUBJECTIVE Subjective Patient information: Note initiated : 04/23/20 at 1:27 pm Service Date, if different from initiated Date: [] Patient: Miladis Salazar a 74 y/o F admitted on 04/19/20 for Fall, lethargic, not eating or drinking. Chief Complaint: [] Interval history: Ms. Salazar is a 74 year old F History obtained from chart as well as patient, patient poor historian. Patient fell about a week ago onto her bottom. Do not know where she was seen she could not give me that history. She said she got some x-rays and was given some pain medication and went home. Over the past week per she has been increasingly weak decreased oral intake. Lethargic and sleeping a lot at home. In the ED she was quite somnolent. Found to have acute kidney injury. She had a significant leukocytosis of 23,000. She was given IV fluid hydration with improvement in her mentation through the night. Imaging of her pelvis showed a markedly diffuse enlargement of the left piriformis muscle and moderate in the right. Case discussed with radiologist who could not rule out developing fracture of that muscle on imaging recommended a needle biopsy. Patient thinks she has missed some medications lately at home. Her blood glucose was quite elevated. The found to be mildly hyponatremic which improved with IV fluids overnight. CRP was 32. She does have some low back/pelvis pain more on the left side low back. 04/20 Patient feeling better. States she feels "like a person again". Hip pain slowly improving. Awaiting aspiration fluid analysis culture Gram stain. Blood cultures positive for gram-positive likely staph. 04/21-patient resting comfortably. Surveillance blood culture positive for gram-positive cocci 04/20. On antibiotic coverage per ID on cefepime/vancomycin. White count at 19.4, sodium 130 CRP 26.5 04/22-surveillance cultures positive. Repeat cultures pending. Continuing on antibiotic coverage per ID. White count down to 16,000. Appears fatigued and lethargic. No anxiety. Continuing bank and cefepime. Blood sugars at goal. Echocardiogram negative for vegetations 04/23-patient doing well. Surveillance cultures positive. Repeat surveillance cultures pending. Will discuss with ID. Continuing cefepime/vancomycin. MSSA on cultures. Will likely require XIOMARA if surveillance cultures positive. Hold PICC line placement until negative surveillance cultures to prevent hardware contamination. Overall lethargic fatigue. White count downtrending. Unable to participate in physical therapies due to profound weakness. White count at 14.6. Sodium 131, blood glucose 215. Constitutional Vitals: Vital Signs Temp Pulse Resp BP Pulse Ox 97.4 F 79 20 129/61 97 04/23/20 08:00 04/23/20 08:00 04/23/20 08:00 04/23/20 08:00 04/23/20 08:30 Period Temp Pulse Resp BP Sys/Gunn Pulse Ox Last 24 Hr 97.3 F-98.6 F 69-79 - 97-129/52-61 97-100 Intake and Output 04/22/20 04/23/20 04/23/20 21:59 05:59 13:59 Intake Total 100 250 400 Output Total 1101 151 250 Balance -1001 99 150 Weight 88.054 kg Intake & Output: Intake & Output 04/22/20 04/23/20 04/23/20 21:59 05:59 13:59 Intake Total 100 250 400 Output Total 1101 151 250 Balance -1001 99 150 Weight 88.054 kg Intake: Oral 100 250 400 Output: Void Amount 1100 150 250 # of times incontinent of urine 1 1 Other: Meal Breakfast Percent of Meal Consumed 25% Feeding Ability Independent Urine Appearance Clear Cloudy Urine Color Pale Dark Yellow Urine Odor Normal Strong Stool Size Large Stool Color Brown Stool Consistency Soft Exam: Fatigued and lethargic. Nonlabored breathing No lymphedema No rash or joint swelling OBJ DATA Labs CBC & Chem 7: 04/24/20 06:01 04/25/20 05:18 Labs: Abnormal Lab Results 04/23/20 04/23/20 04/22/20 05:45 05:45 06:54 WBC 14.6 H 16.3 H RBC 3.99 L 3.98 L Hgb 11.6 L 11.8 L MPV Neut % (Auto) 80.0 H 81.2 H Lymph % (Auto) 9.9 L 9.6 L Lymph # (Auto) 1.44 L [place] # (Auto) 1.30 H 1.30 H Absolute Neutrophils 11.67 H 13.28 H Sodium 131 L Carbon Dioxide 20 L BUN 26 H Glucose 215 H Calcium 8.4 L Phosphorus 2.3 L C-Reactive Protein Albumin 1.9 L Globulin 4.0 H Albumin/Globulin Ratio 0.5 L Procalcitonin 04/22/20 04/21/20 04/21/20 06:54 09:35 08:35 WBC 19.4 H RBC Hgb MPV 10.9 H Neut % (Auto) 88.9 H Lymph % (Auto) 5.6 L Lymph # (Auto) 1.09 L [place] # (Auto) 0.92 H Absolute Neutrophils 17.24 H Sodium 130 L Carbon Dioxide 20 L 15 L BUN 24 H Glucose 146 H 157 H Calcium 8.5 L Phosphorus 2.2 L C-Reactive Protein 26.50 H Albumin 2.1 L Globulin 4.2 H Albumin/Globulin Ratio 0.5 L Procalcitonin 04/20/20 05:56 WBC RBC Hgb MPV Neut % (Auto) Lymph % (Auto) Lymph # (Auto) [place] # (Auto) Absolute Neutrophils Sodium Carbon Dioxide BUN Glucose Calcium Phosphorus C-Reactive Protein Albumin Globulin Albumin/Globulin Ratio Procalcitonin 0.40 H Meds: Medications Acetaminophen (Tylenol) 650 mg PO Q6HP PRN PRN Reason: PAIN/FEVER > 101 Last Admin: 04/22/20 09:13 Dose: 650 mg Documented by: Albuterol/Ipratropium (Duoneb) 3 ml NEB Q4HP PRN PRN Reason: Shortness Of Breath Aspirin (Aspirin) 81 mg PO QDAY [facility] Last Admin: 04/23/20 08:05 Dose: 81 mg Documented by: Bisoprolol Fumarate (Zebeta) 5 mg PO DAILY [facility] Last Admin: 04/23/20 08:05 Dose: 5 mg Documented by: Cefepime HCl (Maxipime) 2 gm IV Q12H [facility]; Protocol Last Admin: 04/23/20 08:19 Dose: 2 gm Documented by: Dextrose (Dextrose 50%) 0 ml IV UD PRN PRN Reason: Hypoglycemia Diagnostic Test (Pha) (Accu-Chek) 1 each FS ACHS [facility] Last Admin: 04/23/20 12:02 Dose: 1 each Documented by: Docusate Sodium (Colace) 100 mg PO BID [facility] Last Admin: 04/23/20 08:05 Dose: 100 mg Documented by: Ezetimibe (Zetia) 10 mg PO HS [facility] Last Admin: 04/22/20 20:10 Dose: 10 mg Documented by: Enoxaparin Sodium (Lovenox) 30 mg SQ DAILY [facility] Last Admin: 04/23/20 08:08 Dose: 30 mg Documented by: Ergocalciferol (Drisdol) 50,000 unit PO WEEKLY [facility] Glucose (Insta-Glucose) 15 gm PO PRN PRN PRN Reason: Hypoglycemia Potassium Chloride 40 meq/ (Dextrose) 520 mls @ 130 mls/hr IV UD PRN PRN Reason: Potassium < 3 Magnesium Sulfate (Magnesium Sulfate) 2 gm in 50 mls @ 50 mls/hr IV UD PRN PRN Reason: Magnesium </= 1.6 Last Admin: 04/22/20 22:47 Dose: 50 mls/hr Documented by: Vancomycin HCl 1,500 mg/ (Sodium Chloride) 500 mls @ 333.3 mls/hr IV Q24H [facility] Last Admin: 04/23/20 08:23 Dose: 333 mls/hr Documented by: Insulin Human Lispro (Humalog) 0 unit SQ ACHS [facility]; Protocol Last Admin: 04/23/20 12:09 Dose: 6 units Documented by: Lactulose (Cephulac) 20 gm PO DAILYP PRN PRN Reason: Constipation Levothyroxine Sodium (Synthroid) 88 mcg PO QDAY [facility] Last Admin: 04/23/20 08:05 Dose: 88 mcg Documented by: Ondansetron HCl (Zofran) 4 mg IV Q4HP PRN PRN Reason: Nausea And Vomiting Liraglutide [Victoza 3-Jero] 1.8 Mg Syringe 1.8 dose SUB-Q QDAY [facility] Last Admin: 04/23/20 08:09 Dose: Not Given Documented by: Polyethylene Glycol (Miralax) 17 gm PO DAILYP PRN PRN Reason: Constipation Potassium Chloride (Kdur) 40 meq PO UD PRN PRN Reason: Potssium is 3-3.5 Potassium Chloride (Kdur) 40 meq PO UD PRN PRN Reason: Potassium < 3 Senna (Senokot) 2 tab PO DAILYP PRN PRN Reason: Constipation Simvastatin (Zocor) 80 mg PO [facility] Last Admin: 04/22/20 20:11 Dose: 80 mg Documented by: Sitagliptin Phosphate (Januvia) 100 mg PO QDAY [facility] Last Admin: 04/23/20 08:05 Dose: 100 mg Documented by: Sodium Chloride (Saline Flush) 10 ml IV Q8 [facility] Last Admin: 04/23/20 04:11 Dose: 10 ml Documented by: Spironolactone (Aldactone) 25 mg PO QDAY [facility] Last Admin: 04/23/20 08:05 Dose: 25 mg Documented by: Vancomycin HCl (Vancomycin Per Pharmacy) 1 order IV UD [facility]; Protocol A/P Assessment and plan (1) Bacteremia: Status: Acute Narrative A/P Narrative: * Staph aureus bacteremia-MSSA. Consider switching to cefazolin. Repeat surveillance cultures pending. ID on board * Severe sepsis secondary to bacteremia. On antibiotic coverage. 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 Clinically improved * Encephalopathy: ?pain meds + LAUREN/volume depletion/Infection. Clinical improvement noted * Complicated*UTI: On antibiotic coverage. * Piriformis muscle abscess: s/p aspiration. Staph aureus on cultures * DM w/Hyperglycemia: Basal prandial insulin/CCD * HTN/HLD: On ezetimibe/spironolactone/bisoprolol * Hypothyroidism: On thyroxine * Obesity: Directed therapies * Generalized weakness/deconditioning: PT OT nutrition support * Prophylaxis enoxaparin Plan: -Continue vanc/Cefepime, consider switching to cefazolin -Repeat surveillance culture -ID on board -Continue home BB/Aldactone, hold ACEI -PT/OT -Discharge planning Time Spent With Patient Time: Total time spent is greater than 50% in coordination of care (as documented) at patient's floor/unit and/or counseling patient: QUALITY VTE Deep Vein Thrombosis/Pulmonary Embolism Present on Admission: No
[2020-04-23] MEDS: SIMVASTATIN 40 MG TABLET PO SCH (21:41)
[2020-04-23] MEDS: ACETAMINOPHEN 325 MG TABLET PO PRN (21:41)
[2020-04-23] MEDS: EZETIMIBE 10 MG TABLET PO SCH (21:42)
[2020-04-24] MEDS: 0.9 % SODIUM CHLORIDE 10 ML SYRINGE IV SCH ×3 (05:25→20:09)
[2020-04-24] MEDS: INSULIN LISPRO 1 UNIT/0.01 ML UNIT SQ SCH ×4 (07:23→20:08)
[2020-04-24] MEDS: sitaGLIPtin 100 MG TABLET PO SCH (08:54)
[2020-04-24] MEDS: ENOXAPARIN 30 MG/0.3 ML SYRINGE SQ SCH (08:54)
[2020-04-24] MEDS: DOCUSATE SODIUM 100 MG CAPSULE PO SCH ×2 (08:54→20:09)
[2020-04-24] MEDS: LEVOTHYROXINE 88 MCG TABLET PO SCH (08:54)
[2020-04-24] MEDS: BISOPROLOL 5 MG TABLET PO SCH (08:54)
[2020-04-24] MEDS: SPIRONOLACTONE 25 MG TABLET PO SCH (08:54)
[2020-04-24] MEDS: ASPIRIN 81 MG TAB.CHEW PO SCH (08:54)
[2020-04-24] MEDS: LIRAGLUTIDE 1.8 MG SUB-Q SCH (08:55)
[2020-04-24] MEDS: VANCOMYCIN 1,500 MG in 0.9 % SODIUM CHLORIDE 500 ML IV SCH (08:59)
[2020-04-24] MEDS ORDERED: ERGOCALCIFEROL (VITAMIN D2) 50,000 UNIT CAPSULE PO SCH (09:00)
[2020-04-24] MEDS: CEFEPIME 2 GM VIAL IV SCH (09:06)
[2020-04-24 09:58] LABS: Basophils # (Auto) 0.05 K/mcL (0.00-0.20); Basophils % (Auto) 0.3 % (0.0-2.0); Eosinophils # (Auto) 0.17 K/mcL (0.00-0.70); Hematocrit 37.8 % (36.0-48.0); Hemoglobin 11.9 g/dL (12.0-15.0); Lymphocytes # (Auto) 1.65 K/mcL (1.50-4.80); Lymphocytes % (Auto) 10.1 % (15.0-49.0); Mean Corpuscular HGB Conc 31.5 g/dL (31.0-36.0); Mean Platelet Volume 10.5 fL (7.4-10.4); Monocytes # (Auto) 1.47 K/mcL (0.10-0.90); Neutrophils % (Auto) 79.6 % (38.0-78.0); Platelet Count 393 K/mcL (140-440); RBC 4.02 M/mcL (4.00-5.20); Red Cell Distribution Width 14.4 % (11.5-14.5); WBC 16.3 K/mcL (4.5-11.0)
[2020-04-24] MEDS ORDERED: ceFAZolin 2 GM in DEXTROSE 5% IN WATER 50 ML IV SCH (11:00)
--- NOTE | 2020-04-24 11:24 | Surgical Pathology Report ---
Histology Microscopic Diagnosis Specimen A- MUSCLE, LEFT PIRIFORMIS, BIOPSY: -- SKELETAL MUSCLE AND FIBROVASCULAR TISSUE WITH EDEMA, MARKED ACUTE/CHRONIC INFLAMMATION, DEGENERATIVE CHANGES AND REACTIVE CYTOLOGIC ATYPIA, SEE COMMENT. -- NO FUNGAL ORGANISMS OR ACID FAST BACTERIA IDENTIFIED (GMS AND AFB STAINS WITH ADEQUATE TECHNICAL CONTROLS). (RLF:adj) Comments The biopsy shows fragments of skeletal muscle and fibrovascular tissue with degenerative features, reactive cytologic changes and marked acute/chronic inflammation. No organisms are identified on AFB and GMS stains. No malignancy is identified. Correlation with pending microbiology studies is recommended. Clinical History Trauma - fall one week prior. Microscopic Description Immunohistochemical studies are performed (block A1). CD34: Highlights vessels. CD68: Positive in inflammatory cells. Pancytokeratin: Negative. Interpretation: No malignancy identified. (RLF:adj) Gross Description Received in formalin labeled piriformis muscle biopsy, are five cores of ojeda-connelly tissue less than 0.1 to 0.3 cm. Totally submitted - two cassettes. (KGW:sln) IHC Disclaimer Some of the tests reported may not have been cleared or approved by the U.S. Food Drug Administration (FDA). However, the FDA has determined that such clearance or approval is not necessary. Pursuant to the requirements of CLIA, this laboratory has established and verified the accuracy and precision of all tests, and additional information about these tests is available upon request. All technical controls are adequate. Electronically Signed Eleanor Caballero MD, FCAP Electronically Signed 04/24/2020 11:22 AM
[2020-04-24] MEDS: ceFAZolin 1 GM VIAL IV SCH ×2 (11:41→20:07)
[2020-04-24 16:07] LABS: ALT/SGPT 21 U/L (<40); AST/SGOT 30 U/L (<32); Albumin/Globulin Ratio 0.5 (1.0-2.3); Alkaline Phosphatase 105 U/L (39-117); Bilirubin,Direct < 0.2 mg/dL (<0.3); Bilirubin,Total 0.2 mg/dL (0.1-1.0); Blood Urea Nitrogen 24 mg/dL (8-23); Calcium 8.3 mg/dL (8.6-10.4); Carbon Dioxide 19 mmol/L (22-30); Chloride 101 mmol/L (96-108); Globulin 3.7 gm/dL (2.2-3.7); Glomerular Filtration Rate 49; Glucose 257 mg/dL (70-105); Lactate Dehydrogenase 216 U/L (135-225); Phosphorous 2.7 mg/dL (2.5-4.5); Triglycerides 101 mg/dL (<150); Uric Acid 4.3 mg/dL (2.5-8.0)
[2020-04-24] MEDS: SIMVASTATIN 40 MG TABLET PO SCH (20:08)
[2020-04-24] MEDS: ACETAMINOPHEN 325 MG TABLET PO PRN (20:08)
[2020-04-24] MEDS: EZETIMIBE 10 MG TABLET PO SCH (20:09)
[2020-04-25] MEDS: ceFAZolin 1 GM VIAL IV SCH ×2 (05:24→13:56)
[2020-04-25] MEDS: 0.9 % SODIUM CHLORIDE 10 ML SYRINGE IV SCH ×2 (05:24→15:02)
[2020-04-25 07:22] LABS: ALT/SGPT 21 U/L (<40); AST/SGOT 30 U/L (<32); Albumin/Globulin Ratio 0.5 (1.0-2.3); Alkaline Phosphatase 111 U/L (39-117); Bilirubin,Direct < 0.2 mg/dL (<0.3); Bilirubin,Total 0.3 mg/dL (0.1-1.0); Blood Urea Nitrogen 23 mg/dL (8-23); Calcium 8.8 mg/dL (8.6-10.4); Carbon Dioxide 20 mmol/L (22-30); Chloride 104 mmol/L (96-108); Globulin 4.4 gm/dL (2.2-3.7); Glomerular Filtration Rate 49; Glucose 138 mg/dL (70-105); Lactate Dehydrogenase 266 U/L (135-225); Phosphorous 2.9 mg/dL (2.5-4.5); Triglycerides 118 mg/dL (<150)
[2020-04-25] MEDS: INSULIN LISPRO 1 UNIT/0.01 ML UNIT SQ SCH ×4 (07:58→20:22)
[2020-04-25] MEDS: LIRAGLUTIDE 1.8 MG SUB-Q SCH (08:39)
[2020-04-25] MEDS: LEVOTHYROXINE 88 MCG TABLET PO SCH (08:39)
[2020-04-25] MEDS: SPIRONOLACTONE 25 MG TABLET PO SCH (08:39)
[2020-04-25] MEDS: ASPIRIN 81 MG TAB.CHEW PO SCH (08:39)
[2020-04-25] MEDS: ENOXAPARIN 30 MG/0.3 ML SYRINGE SQ SCH (08:39)
[2020-04-25] MEDS: sitaGLIPtin 100 MG TABLET PO SCH (08:39)
[2020-04-25] MEDS: BISOPROLOL 5 MG TABLET PO SCH (08:39)
[2020-04-25] MEDS: DOCUSATE SODIUM 100 MG CAPSULE PO SCH ×2 (08:39→20:23)
[2020-04-25] MEDS ORDERED: INSULIN GLARGINE, HUMAN 1 UNIT/0.01 ML SQ SCH (09:00)
--- NOTE | 2020-04-25 10:30 | Internal Med Progress Note ---
SUBJECTIVE Subjective Patient information: Note initiated : 04/24/20 at 11:26 am Service Date, if different from initiated Date: [] Patient: Miladis Salazar a 74 y/o F admitted on 04/19/20 for Fall, lethargic, not eating or drinking. Chief Complaint: [] Interval history: Ms. Salazar is a 74 year old F History obtained from chart as well as patient, patient poor historian. Patient fell about a week ago onto her bottom. Do not know where she was seen she could not give me that history. She said she got some x-rays and was given some pain medication and went home. Over the past week per she has been increasingly weak decreased oral intake. Lethargic and sleeping a lot at home. In the ED she was quite somnolent. Found to have acute kidney injury. She had a significant leukocytosis of 23,000. She was given IV fluid hydration with improvement in her mentation through the night. Imaging of her pelvis showed a markedly diffuse enlargement of the left piriformis muscle and moderate in the right. Case discussed with radiologist who could not rule out developing fracture of that muscle on imaging recommended a needle biopsy. Patient thinks she has missed some medications lately at home. Her blood glucose was quite elevated. The found to be mildly hyponatremic which improved with IV fluids overnight. CRP was 32. She does have some low back/pelvis pain more on the left side low back. 04/20 Patient feeling better. States she feels "like a person again". Hip pain slowly improving. Awaiting aspiration fluid analysis culture Gram stain. Blood cultures positive for gram-positive likely staph. 04/21-patient resting comfortably. Surveillance blood culture positive for gram-positive cocci 04/20. On antibiotic coverage per ID on cefepime/vancomycin. White count at 19.4, sodium 130 CRP 26.5 04/22-surveillance cultures positive. Repeat cultures pending. Continuing on antibiotic coverage per ID. White count down to 16,000. Appears fatigued and lethargic. No anxiety. Continuing bank and cefepime. Blood sugars at goal. Echocardiogram negative for vegetations 04/23-patient doing well. Surveillance cultures positive. Repeat surveillance antibiotics switched to cefazolin. Will discuss with ID. Continuing cefepime/vancomycin. MSSA on cultures. Will likely require XIOMARA if surveillance cultures positive. Hold PICC line placement until negative surveillance cultures to prevent hardware contamination. Overall lethargic fatigue. White count downtrending. Unable to participate in physical therapies due to profound weakness. White count at 14.6. Sodium 131, blood glucose 215. 04/24-patient status quo. White count higher at 16.3. Antibiotics switched to cefazolin. Surveillance cultures pending. Hold PICC line placement until negative cultures for 5 days. No overnight fever chills. Constitutional Vitals: Vital Signs Temp Pulse Resp BP Pulse Ox 98.1 F 73 18 143/63 100 04/25/20 08:00 04/25/20 08:00 04/25/20 08:00 04/25/20 08:00 04/25/20 08:00 Period Temp Pulse Resp BP Sys/Gunn Pulse Ox Last 24 Hr 98.0 F-98.7 F 69-83 18-22 108-143/51-68 97-100 Intake and Output 04/24/20 04/25/20 04/25/20 21:59 05:59 13:59 Intake Total 1120 0 460 Output Total 200 1027 200 Balance 920 -1027 260 Weight 87.906 kg Alert and responding commands Minimal participation in physical therapy Minimal lymphedema Intake & Output: Intake & Output 04/24/20 04/25/20 04/25/20 21:59 05:59 13:59 Intake Total 1120 0 460 Output Total 200 1027 200 Balance 920 -1027 260 Weight 87.906 kg Intake: Oral 1120 0 460 Output: Void Amount 200 1025 200 # of times incontinent of urine 2 Other: Meal Nourishment/Supplement Breakfast Percent of Meal Consumed 100% 50% Feeding Ability Assist with Tray Set Up Independent Urine Appearance Clear Clear Clear Urine Color Bright Yellow Bright Yellow Bright Yellow Urine Odor Normal Normal Stool Size Small Stool Consistency Soft # Voids 1 # Bowel Movements 1 Exam: Fatigued and lethargic. Nonlabored breathing No lymphedema No rash or joint swelling OBJ DATA Labs CBC & Chem 7: 04/24/20 06:01 04/25/20 05:18 Labs: Abnormal Lab Results 04/25/20 04/24/20 04/24/20 05:18 12:32 06:01 WBC 16.3 H RBC Hgb 11.9 L MPV 10.5 H Neut % (Auto) 79.6 H Lymph % (Auto) 10.1 L Lymph # (Auto) [place] # (Auto) 1.47 H Absolute Neutrophils 12.97 H Sodium 132 L Carbon Dioxide 20 L 19 L BUN 24 H Glucose 138 H 257 H Calcium 8.3 L Phosphorus Lactate Dehydrogenase 266 H Total Protein 5.7 L Albumin 2.0 L 2.0 L Globulin 4.4 H Albumin/Globulin Ratio 0.5 L 0.5 L 04/23/20 04/23/20 05:45 05:45 WBC 14.6 H RBC 3.99 L Hgb 11.6 L MPV Neut % (Auto) 80.0 H Lymph % (Auto) 9.9 L Lymph # (Auto) 1.44 L [place] # (Auto) 1.30 H Absolute Neutrophils 11.67 H Sodium 131 L Carbon Dioxide 20 L BUN 26 H Glucose 215 H Calcium 8.4 L Phosphorus 2.3 L Lactate Dehydrogenase Total Protein Albumin 1.9 L Globulin 4.0 H Albumin/Globulin Ratio 0.5 L Meds: Medications Acetaminophen (Tylenol) 650 mg PO Q6HP PRN PRN Reason: PAIN/FEVER > 101 Last Admin: 04/24/20 20:08 Dose: 650 mg Documented by: Albuterol/Ipratropium (Duoneb) 3 ml NEB Q4HP PRN PRN Reason: Shortness Of Breath Aspirin (Aspirin) 81 mg PO QDAY [facility] Last Admin: 04/25/20 08:39 Dose: 81 mg Documented by: Bisoprolol Fumarate (Zebeta) 5 mg PO DAILY [facility] Last Admin: 04/25/20 08:39 Dose: 5 mg Documented by: Cefazolin Sodium (Ancef) 2 gm IV Q8H [facility] Last Admin: 04/25/20 05:24 Dose: 2 gm Documented by: Dextrose (Dextrose 50%) 0 ml IV UD PRN PRN Reason: Hypoglycemia Diagnostic Test (Pha) (Accu-Chek) 1 each FS ACHS [facility] Last Admin: 04/25/20 07:58 Dose: 1 each Documented by: Docusate Sodium (Colace) 100 mg PO BID [facility] Last Admin: 04/25/20 08:39 Dose: 100 mg Documented by: Ezetimibe (Zetia) 10 mg PO HS [facility] Last Admin: 04/24/20 20:09 Dose: 10 mg Documented by: Enoxaparin Sodium (Lovenox) 30 mg SQ DAILY [facility] Last Admin: 04/25/20 08:39 Dose: 30 mg Documented by: Ergocalciferol (Drisdol) 50,000 unit PO WEEKLY [facility] Glucose (Insta-Glucose) 15 gm PO PRN PRN PRN Reason: Hypoglycemia Potassium Chloride 40 meq/ (Dextrose) 520 mls @ 130 mls/hr IV UD PRN PRN Reason: Potassium < 3 Magnesium Sulfate (Magnesium Sulfate) 2 gm in 50 mls @ 50 mls/hr IV UD PRN PRN Reason: Magnesium </= 1.6 Last Admin: 04/22/20 22:47 Dose: 50 mls/hr Documented by: Insulin Human Lispro (Humalog) 0 unit SQ ACHS [facility]; Protocol Last Admin: 04/25/20 07:58 Dose: Not Given Documented by: Lactulose (Cephulac) 20 gm PO DAILYP PRN PRN Reason: Constipation Levothyroxine Sodium (Synthroid) 88 mcg PO QDAY [facility] Last Admin: 04/25/20 08:39 Dose: 88 mcg Documented by: Ondansetron HCl (Zofran) 4 mg IV Q4HP PRN PRN Reason: Nausea And Vomiting Liraglutide [Victoza 3-Jero] 1.8 Mg Syringe 1.8 dose SUB-Q QDAY [facility] Last Admin: 04/25/20 08:39 Dose: Not Given Documented by: Polyethylene Glycol (Miralax) 17 gm PO DAILYP PRN PRN Reason: Constipation Potassium Chloride (Kdur) 40 meq PO UD PRN PRN Reason: Potssium is 3-3.5 Potassium Chloride (Kdur) 40 meq PO UD PRN PRN Reason: Potassium < 3 Senna (Senokot) 2 tab PO DAILYP PRN PRN Reason: Constipation Simvastatin (Zocor) 80 mg PO HS [facility] Last Admin: 04/24/20 20:08 Dose: 80 mg Documented by: Sitagliptin Phosphate (Januvia) 100 mg PO QDAY [facility] Last Admin: 04/25/20 08:39 Dose: 100 mg Documented by: Sodium Chloride (Saline Flush) 10 ml IV Q8 [facility] Last Admin: 04/25/20 05:24 Dose: 10 ml Documented by: Spironolactone (Aldactone) 25 mg PO QDAY [facility] Last Admin: 11/25/20 08:39 Dose: 25 mg Documented by: A/P Assessment and plan (1) Bacteremia: Status: Acute Narrative A/P Narrative: * MSSA bacteremia- Switch to cefazolin per ID. Await surveillance cultures [facility] 04/22 * Severe sepsis secondary to bacteremia. On antibiotic coverage. 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 Clinically improved * Encephalopathy: Clinically improving. Remains lethargic. Likely secondary to sepsis endorgan dysfunction * Complicated*UTI: Resolved on antibiotics. * Piriformis muscle abscess: s/p aspiration. MSSA on cultures * DM w/Hyperglycemia: Basal prandial insulin/CCD * HTN/HLD: On ezetimibe/spironolactone/bisoprolol * Hypothyroidism: On thyroxine * Obesity: Directed therapies * Generalized weakness/deconditioning: PT OT nutrition support * Prophylaxis enoxaparin Plan: -Start cefazolin per ID -Repeat surveillance culture 04/22 pending -Continue home BB/Aldactone, hold ACEI -PT/OT -Discharge planning likely SNF on outpatient antibiotics. Will need transesophageal echocardiogram/PICC line placement at [facility] Time Spent With Patient Time: Total time spent is greater than 50% in coordination of care (as documented) at patient's floor/unit and/or counseling patient: QUALITY VTE Deep Vein Thrombosis/Pulmonary Embolism Present on Admission: No
--- NOTE | 2020-04-25 10:33 | Internal Med Progress Note ---
SUBJECTIVE Subjective Patient information: Note initiated : 04/25/20 at 10:30 am Service Date, if different from initiated Date: [] Patient: Miladis Salazar a 74 y/o F admitted on 04/19/20 for Fall, lethargic, not eating or drinking. Chief Complaint: [] Interval history: Ms. Salazar is a 74 year old F History obtained from chart as well as patient, patient poor historian. Patient fell about a week ago onto her bottom. Do not know where she was seen she could not give me that history. She said she got some x-rays and was given some pain medication and went home. Over the past week per she has been increasingly weak decreased oral intake. Lethargic and sleeping a lot at home. In the ED she was quite somnolent. Found to have acute kidney injury. She had a significant leukocytosis of 23,000. She was given IV fluid hydration with improvement in her mentation through the night. Imaging of her pelvis showed a markedly diffuse enlargement of the left piriformis muscle and moderate in the right. Case discussed with radiologist who could not rule out developing fracture of that muscle on imaging recommended a needle biopsy. Patient thinks she has missed some medications lately at home. Her blood glucose was quite elevated. The found to be mildly hyponatremic which improved with IV fluids overnight. CRP was 32. She does have some low back/pelvis pain more on the left side low back. 04/20 Patient feeling better. States she feels "like a person again". Hip pain slowly improving. Awaiting aspiration fluid analysis culture Gram stain. Blood cultures positive for gram-positive likely staph. 04/21-patient resting comfortably. Surveillance blood culture positive for gram-positive cocci 04/20. On antibiotic coverage per ID on cefepime/vancomycin. White count at 19.4, sodium 130 CRP 26.5 04/22-surveillance cultures positive. Repeat cultures pending. Continuing on antibiotic coverage per ID. White count down to 16,000. Appears fatigued and lethargic. No anxiety. Continuing bank and cefepime. Blood sugars at goal. Echocardiogram negative for vegetations 04/23-patient doing well. Surveillance cultures positive. Repeat surveillance antibiotics switched to cefazolin. Will discuss with ID. Continuing cefepime/vancomycin. MSSA on cultures. Will likely require XIOMARA if surveillance cultures positive. Hold PICC line placement until negative surveillance cultures to prevent hardware contamination. Overall lethargic fatigue. White count downtrending. Unable to participate in physical therapies due to profound weakness. White count at 14.6. Sodium 131, blood glucose 215. 04/24-patient status quo. White count higher at 16.3. Antibiotics switched to cefazolin. Surveillance cultures pending. Hold PICC line placement until negative cultures for 5 days. No overnight fever chills. 04/25-continue cefazolin. Clinically unchanged. Surveillance cultures from 04/22 remains negative. No overnight fever chills. Systolics 130s. Blood sugars 140. On room air. Afebrile. Constitutional Vitals: Vital Signs Temp Pulse Resp BP Pulse Ox 98.1 F 73 18 143/63 100 04/25/20 08:00 04/25/20 08:00 04/25/20 08:00 04/25/20 08:00 04/25/20 08:00 Period Temp Pulse Resp BP Sys/Gunn Pulse Ox Last 24 Hr 98.0 F-98.7 F 69-83 108-143/51-68 97-100 Intake and Output 04/24/20 04/25/20 04/25/20 21:59 05:59 13:59 Intake Total 1120 0 460 Output Total 200 1027 200 Balance 920 -1027 260 Weight 87.906 kg resting comfortably Remains fatigued lethargic Nonlabored breathing Intake & Output: Intake & Output 04/24/20 04/25/20 04/25/20 21:59 05:59 13:59 Intake Total 1120 0 460 Output Total 200 1027 200 Balance 920 -1027 260 Weight 87.906 kg Intake: Oral 1120 0 460 Output: Void Amount 200 1025 200 # of times incontinent of urine 2 Other: Meal Nourishment/Supplement Breakfast Percent of Meal Consumed 100% 50% Feeding Ability Assist with Tray Set Up Independent Urine Appearance Clear Clear Clear Urine Color Bright Yellow Bright Yellow Bright Yellow Urine Odor Normal Normal Stool Size Small Stool Consistency Soft # Voids 1 # Bowel Movements 1 OBJ DATA Labs CBC & Chem 7: 04/24/20 06:01 04/25/20 05:18 Labs: Abnormal Lab Results 04/25/20 04/24/20 04/24/20 05:18 12:32 06:01 WBC 16.3 H RBC Hgb 11.9 L MPV 10.5 H Neut % (Auto) 79.6 H Lymph % (Auto) 10.1 L Lymph # (Auto) Norton # (Auto) 1.47 H Absolute Neutrophils 12.97 H Sodium 132 L Carbon Dioxide 20 L 19 L BUN 24 H Glucose 138 H 257 H Calcium 8.3 L Phosphorus Lactate Dehydrogenase 266 H Total Protein 5.7 L Albumin 2.0 L 2.0 L Globulin 4.4 H Albumin/Globulin Ratio 0.5 L 0.5 L 04/23/20 04/23/20 05:45 05:45 WBC 14.6 H RBC 3.99 L Hgb 11.6 L MPV Neut % (Auto) 80.0 H Lymph % (Auto) 9.9 L Lymph # (Auto) 1.44 L Norton # (Auto) 1.30 H Absolute Neutrophils 11.67 H Sodium 131 L Carbon Dioxide 20 L BUN 26 H Glucose 215 H Calcium 8.4 L Phosphorus 2.3 L Lactate Dehydrogenase Total Protein Albumin 1.9 L Globulin 4.0 H Albumin/Globulin Ratio 0.5 L Meds: Medications Acetaminophen (Tylenol) 650 mg PO Q6HP PRN PRN Reason: PAIN/FEVER > 101 Last Admin: 04/24/20 20:08 Dose: 650 mg Documented by: Albuterol/Ipratropium (Duoneb) 3 ml NEB Q4HP PRN PRN Reason: Shortness Of Breath Aspirin (Aspirin) 81 mg PO QDAY [facility] Last Admin: 04/25/20 08:39 Dose: 81 mg Documented by: Bisoprolol Fumarate (Zebeta) 5 mg PO DAILY [facility] Last Admin: 04/25/20 08:39 Dose: 5 mg Documented by: Cefazolin Sodium (Ancef) 2 gm IV Q8H [facility] Last Admin: 04/25/20 05:24 Dose: 2 gm Documented by: Dextrose (Dextrose 50%) 0 ml IV UD PRN PRN Reason: Hypoglycemia Diagnostic Test (Pha) (Accu-Chek) 1 each FS ACHS [facility] Last Admin: 04/25/20 07:58 Dose: 1 each Documented by: Docusate Sodium (Colace) 100 mg PO BID [facility] Last Admin: 04/25/20 08:39 Dose: 100 mg Documented by: Ezetimibe (Zetia) 10 mg PO HS [facility] Last Admin: 04/24/20 20:09 Dose: 10 mg Documented by: Enoxaparin Sodium (Lovenox) 30 mg SQ DAILY [facility] Last Admin: 04/25/20 08:39 Dose: 30 mg Documented by: Ergocalciferol (Drisdol) 50,000 unit PO WEEKLY [facility] Glucose (Insta-Glucose) 15 gm PO PRN PRN PRN Reason: Hypoglycemia Potassium Chloride 40 meq/ (Dextrose) 520 mls @ 130 mls/hr IV UD PRN PRN Reason: Potassium < 3 Magnesium Sulfate (Magnesium Sulfate) 2 gm in 50 mls @ 50 mls/hr IV UD PRN PRN Reason: Magnesium </= 1.6 Last Admin: 04/22/20 22:47 Dose: 50 mls/hr Documented by: Insulin Human Lispro (Humalog) 0 unit SQ ACHS [facility]; Protocol Last Admin: 04/25/20 07:58 Dose: Not Given Documented by: Lactulose (Cephulac) 20 gm PO DAILYP PRN PRN Reason: Constipation Levothyroxine Sodium (Synthroid) 88 mcg PO QDAY [facility] Last Admin: 04/25/20 08:39 Dose: 88 mcg Documented by: Ondansetron HCl (Zofran) 4 mg IV Q4HP PRN PRN Reason: Nausea And Vomiting Liraglutide [Victoza 3-Jero] 1.8 Mg Syringe 1.8 dose SUB-Q QDAY [facility] Last Admin: 04/25/20 08:39 Dose: Not Given Documented by: Polyethylene Glycol (Miralax) 17 gm PO DAILYP PRN PRN Reason: Constipation Potassium Chloride (Kdur) 40 meq PO UD PRN PRN Reason: Potssium is 3-3.5 Potassium Chloride (Kdur) 40 meq PO UD PRN PRN Reason: Potassium < 3 Senna (Senokot) 2 tab PO DAILYP PRN PRN Reason: Constipation Simvastatin (Zocor) 80 mg PO [facility] Last Admin: 04/24/20 20:08 Dose: 80 mg Documented by: Sitagliptin Phosphate (Januvia) 100 mg PO QDAY [facility] Last Admin: 04/25/20 08:39 Dose: 100 mg Documented by: Sodium Chloride (Saline Flush) 10 ml IV Q8 [facility] Last Admin: 04/25/20 05:24 Dose: 10 ml Documented by: Spironolactone (Aldactone) 25 mg PO QDAY [facility] Last Admin: 04/25/20 08:39 Dose: 25 mg Documented by: A/P Assessment and plan (1) Bacteremia: Status: Acute Narrative A/P Narrative: * MSSA bacteremia-continue cefazolin per ID. Await surveillance cultures from 04/22. Declined placement in 24 hours if negative cultures * Severe sepsis secondary to bacteremia. On antibiotic coverage. 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 Clinically improved * Encephalopathy: Clinically improving. Remains lethargic. Likely secondary to sepsis endorgan dysfunction * Complicated*UTI: Resolved on antibiotics. * Piriformis muscle abscess: s/p aspiration. MSSA on cultures * DM w/Hyperglycemia: Basal prandial insulin/CCD, uptitrate * HTN/HLD: On ezetimibe/spironolactone/bisoprolol * Hypothyroidism: On thyroxine * Generalized weakness/deconditioning: Continue directed therapy/PT as tolerated * Prophylaxis enoxaparin Plan: -Continue IV cefazolin per ID -Repeat surveillance culture 04/22 pending -Increase basal insulin -PT/OT -Discharge planning likely SNF on outpatient antibiotics. Will need transesophageal echocardiogram/PICC line placement at [facility] Time Spent With Patient Time: Total time spent is greater than 50% in coordination of care (as documented) at patient's floor/unit and/or counseling patient: QUALITY VTE Deep Vein Thrombosis/Pulmonary Embolism Present on Admission: No
[2020-04-25] MEDS ORDERED: sitaGLIPtin 100 MG TABLET PO SCH (10:35)
--- NOTE | 2020-04-25 11:59 | Infectious Disease Consult ---
HPI Data of Consult Primary Care Provider: Maria Dolores Fernandes Consult Narrative cc:: CC: Gopi Redding is a 74-year-old woman who remains on IV Ancef 2 g 3 times daily for MSSA bacteremia. She has bilateral piriformis muscle abscesses/myositis. I have reviewed with Dr. Faulkner today. I have also reviewed with nursing staff. No complaints of fevers. She does have left leg weakness. No complaints of back pain. She does not have blood cultures negative yet. PFSH PFSH All Active Problems (Updated 04/25/20 @ 12:00 by Guy Gruber MD) Aortic valve stenosis (Acute) Diabetes mellitus (Acute) Bacteremia (Acute) Muscle abscess (Acute) Acute renal failure (ARF) (Acute) Dehydration (Acute) Hyponatremia (Acute) Abnormal ECG (Acute) Constipation (Acute) Elevated WBC count (Acute) Hypoalbuminemia (Acute) Abnormal computed tomography of pelvis (Acute) Shortness of breath (Chronic) Dysmetabolic syndrome X (Chronic) Chest pain (Chronic) CAD (coronary artery disease) (Chronic) Dyspnea (Chronic) Coronary arteriosclerosis (Chronic) Encounter for Health Maintenance Examination in Adult (Chronic) Acute knee pain (Chronic) Morbid obesity (Chronic) Annual physical exam (Chronic) History of coronary artery bypass graft (Chronic ~11/2012) Obesity (Chronic) Vitamin D deficiency (Chronic) Myocardial infarction acute (Chronic) Hypothyroidism (acquired) (Chronic) Hypertension, essential (Chronic) Hyperlipidemia (Chronic) Fatigue (Chronic) Edema (Chronic) Diabetes mellitus, type II (Chronic) Degenerative joint disease (Chronic) Congestive heart failure (Chronic) Medical History (Updated 04/25/20 @ 12:00 by Guy Gruber MD) Acute knee pain (Chronic) likely due to twisting, able to ambulate without any issues, knee rom normal she likely hyas some OA in the left knee. Lidoderm patches for now. Acute renal failure (Resolved) Annual physical exam (Chronic) 02/27/17 Colonoscopy 2011, unclear when repeat is due, Dr. Isauro Broussard 2010 Normal PAP not indicated any more Mammogram 2010, 2014, 06/2016 Tdap 11/2014 PCV 11/2014 Hep C screen negative Atherosclerosis (Inactive) CAD (coronary artery disease) (Inactive) 02/16/2014 Dr. Ge Pruitt CAD (coronary artery disease) (Chronic) Chest pain (Inactive) Chest pain (Chronic) Congestive heart failure (Chronic) Coronary arteriosclerosis (Chronic) Degenerative joint disease (Chronic) Diabetes mellitus, type II (Chronic) Dysmetabolic syndrome X (Inactive) Dysmetabolic syndrome X (Chronic) Dyspnea (Chronic) Edema (Chronic) Fatigue (Chronic) Heart disease (Inactive) Arteriosclerotic Hyperlipidemia (Chronic) Hypertension, essential (Chronic) Hypothyroidism (acquired) (Chronic) Morbid obesity (Chronic) Poor physical activity/ poor diet, sits all day and eats cheetos, advised to cut back, Myocardial infarction acute (Chronic) 11/2012 Obesity (Chronic) Shortness of breath (Inactive) Shortness of breath (Chronic) Vitamin D deficiency (Chronic) Surgical History History of cardiac cath (Chronic ~11/28/99) History of cardiac catheterization (Inactive 11/28/99) History of coronary artery bypass graft (Chronic ~11/2012) 11/2012 x3 History of hip surgery (Inactive) Hip fusion. Does not specify date or which hip. History of hip surgery (Chronic) Hip fusion, does no specify date or which hip History of hysterectomy (Inactive) History of hysterectomy (Chronic) History of knee surgery (Inactive) Knee replacement, didn't specify which knee or when History of knee surgery (Chronic) Knee replacement, did not specify which kne or when History of tonsillectomy (Inactive) History of tonsillectomy (Chronic) Family History Mother Family history of cardiac disorder, Onset Age: 77 Family history of cardiac problems Social History (Updated 06/07/19 @ 15:45 by Alexa Hernandez, RD, LD, CD) adopted: Yes occupational status: retired smoking status: Never smoker alcohol intake frequency: does not drink substance use type: does not use MEDS/ALLERGIES Home Medications and Allergies Home Medications Medication Instructions Recorded Confirmed Type aspirin 81 mg chewable tablet 81 mg PO QDAY tab 11/19/14 04/19/20 History naproxen sodium 220 mg capsule 440 mg PO Q12H cap 07/25/15 04/19/20 History bisoprolol fumarate 10 mg tablet 5 mg PO QDAY tab 03/23/18 04/19/20 History ezetimibe 10 mg-simvastatin 80 mg 1 tab PO QDAY 03/23/18 04/19/20 History tablet spironolactone 25 mg tablet 25 mg PO QDAY 03/23/18 04/19/20 History nitroglycerin 0.4 mg sublingual 0.4 mg SUBLINGUAL .COMPLEX PRN #25 01/25/19 04/19/20 Rx tablet tab glipizide 10 mg tablet, extended 10 mg PO QDAY #30 tab 02/09/19 04/19/20 Rx release 24 hr liraglutide 0.6 mg/0.1 mL (18 mg/3 1.8 mg SUB-Q QDAY #27 ml 03/07/19 04/19/20 Rx mL) subcutaneous pen injector ergocalciferol (vitamin D2) 1,250 mcg PO WEEKLY 04/19/20 04/19/20 History levothyroxine 88 mcg PO QDAY 04/19/20 04/19/20 History lisinopril 2.5 mg PO QDAY 04/19/20 04/19/20 History sitagliptin [Januvia] 100 mg PO QDAY 04/19/20 04/19/20 History Allergies Allergy/AdvReac Type Severity Reaction Status Date / Time adhesive tape Allergy Mild Hives Verified 04/19/20 09:54 Penicillins [PENICILLINS] Allergy Mild RASH Verified 04/19/20 09:54 shellfish derived Allergy Mild Hives Verified 04/19/20 09:54 morphine [MORPHINE] Allergy Unknown UNKNOWN Verified 04/18/20 16:36 Thiopental [From Pentothal] Allergy Unknown Unknown Verified 04/18/20 16:36 pioglitazone [From Actos] AdvReac Intermediate heart Verified 04/19/20 09:55 failure chocolate flavor AdvReac Mild Dry Heaves Verified 04/19/20 09:54 felodipine AdvReac Mild Edema Verified 04/19/20 09:54 metformin AdvReac Mild Diarrhea Verified 04/19/20 09:54 Physical Examination Vital Signs Vital signs: Temp Pulse Resp BP Pulse Ox 98.7 F 73 22 117/66 98 04/25/20 11:38 04/25/20 11:38 04/25/20 11:38 04/25/20 11:38 04/25/20 11:38 Additional Exam Additional exam: General: No acute distress. She is hard of hearing. HEENT: Anicteric sclera no conjunctiva drainage. Heart: 1/6 systolic murmur. Lungs clear bilaterally. Abdomen obese. Extremities: 1+ ankle edema. No knee effusions or erythema. I have passively moved her left lower extremity which does not bother her left hip. She does have some discomfort when I flex hip at extreme. Skin without rash. Results Laboratory Findings CBC and BMP: 04/24/20 06:01 04/25/20 05:18 ABG, PT/INR, D-dimer: PT/INR, D-dimer PT 16.0 sec (11.9-14.5) H 04/19/20 08:17 INR 1.3 (0.9-1.1) H 04/19/20 08:17 Abnormal lab findings: Abnormal Labs 04/18/20 04/18/20 04/18/20 08:22 17:18 17:18 WBC 23.7 H RBC Hgb Hct Plt Count 477 H MPV Neut % (Auto) 89.1 H Lymph % (Auto) 4.0 L Lymph # (Auto) 0.95 L [place]ven # (Auto) 1.55 H Seg Neutrophils % Lymphocytes % Absolute Neutrophils 21.12 H Nucleated RBCs RBC Morphology Polychromasia PT INR Sodium 127 L Chloride 92 L Carbon Dioxide 20 L BUN 56 H Creatinine 2.3 H Glucose 448 H Calcium Phosphorus Magnesium Alkaline Phosphatase 133 H Lactate Dehydrogenase C-Reactive Protein Total Protein Albumin 2.6 L Globulin 4.3 H Albumin/Globulin Ratio 0.6 L Procalcitonin Urine Appearance Cloudy A Urine Protein 30 A Urine Glucose (UA) >=500 A Ur Leukocyte Esterase 75 A Urine RBC 5 H Urine WBC 12 H Uric Acid Crystals Mod A Urine Bacteria Many A Hyaline Casts 12 H Urine Mucus Many A 04/18/20 04/18/20 04/18/20 17:18 17:18 17:18 WBC RBC Hgb Hct Plt Count MPV Neut % (Auto) Lymph % (Auto) Lymph # (Auto) [place]ven # (Auto) Seg Neutrophils % 93 H Lymphocytes % 4 L Absolute Neutrophils Nucleated RBCs RBC Morphology Polychromasia PT INR Sodium Chloride Carbon Dioxide BUN Creatinine Glucose Calcium Phosphorus Magnesium Alkaline Phosphatase Lactate Dehydrogenase C-Reactive Protein 31.30 H Total Protein Albumin Globulin Albumin/Globulin Ratio Procalcitonin 1.00 H Urine Appearance Urine Protein Urine Glucose (UA) Ur Leukocyte Esterase Urine RBC Urine WBC Uric Acid Crystals Urine Bacteria Hyaline Casts Urine Mucus 04/19/20 04/19/20 04/19/20 04:16 04:16 04:16 WBC 23.2 H RBC 3.83 L Hgb 11.4 L Hct 35.0 L Plt Count MPV Neut % (Auto) 86.8 H Lymph % (Auto) 5.5 L Lymph # (Auto) 1.27 L [place]ven # (Auto) 1.69 H Seg Neutrophils % 83 H Lymphocytes % 3 L Absolute Neutrophils 20.12 H Nucleated RBCs 1 H RBC Morphology Abnormal A Polychromasia 1+ A PT INR Sodium Chloride Carbon Dioxide 21 L BUN 45 H Creatinine 1.4 H Glucose 254 H Calcium Phosphorus Magnesium Alkaline Phosphatase Lactate Dehydrogenase C-Reactive Protein 26.00 H Total Protein Albumin 2.1 L Globulin 3.9 H Albumin/Globulin Ratio 0.5 L Procalcitonin Urine Appearance Urine Protein Urine Glucose (UA) Ur Leukocyte Esterase Urine RBC Urine WBC Uric Acid Crystals Urine Bacteria Hyaline Casts Urine Mucus 04/19/20 04/20/20 04/20/20 08:17 05:55 05:56 WBC RBC Hgb Hct Plt Count MPV Neut % (Auto) Lymph % (Auto) Lymph # (Auto) [place]ven # (Auto) Seg Neutrophils % Lymphocytes % Absolute Neutrophils Nucleated RBCs RBC Morphology Polychromasia PT 16.0 H INR 1.3 H Sodium Chloride Carbon Dioxide BUN Creatinine Glucose Calcium Phosphorus Magnesium Alkaline Phosphatase Lactate Dehydrogenase C-Reactive Protein 30.00 H Total Protein Albumin Globulin Albumin/Globulin Ratio Procalcitonin 0.40 H Urine Appearance Urine Protein Urine Glucose (UA) Ur Leukocyte Esterase Urine RBC Urine WBC Uric Acid Crystals Urine Bacteria Hyaline Casts Urine Mucus 04/20/20 04/20/20 04/21/20 07:33 10:15 08:35 WBC 22.2 H RBC 3.28 L Hgb 9.8 L Hct 30.2 L Plt Count MPV 10.9 H Neut % (Auto) 87.5 H Lymph % (Auto) 5.0 L Lymph # (Auto) 1.12 L [place]ven # (Auto) 1.60 H Seg Neutrophils % Lymphocytes % Absolute Neutrophils 19.42 H Nucleated RBCs RBC Morphology Polychromasia PT INR Sodium 132 L 130 L Chloride Carbon Dioxide 15 L 15 L BUN 28 H Creatinine 1.2 H Glucose 236 H 157 H Calcium 8.5 L Phosphorus Magnesium 1.5 L Alkaline Phosphatase 121 H Lactate Dehydrogenase 456 H C-Reactive Protein 26.50 H Total Protein Albumin 1.8 L Globulin 4.6 H Albumin/Globulin Ratio 0.4 L Procalcitonin Urine Appearance Urine Protein Urine Glucose (UA) Ur Leukocyte Esterase Urine RBC Urine WBC Uric Acid Crystals Urine Bacteria Hyaline Casts Urine Mucus 04/21/20 04/22/20 04/22/20 09:35 06:54 06:54 WBC 19.4 H 16.3 H RBC 3.98 L Hgb 11.8 L Hct Plt Count MPV 10.9 H Neut % (Auto) 88.9 H 81.2 H Lymph % (Auto) 5.6 L 9.6 L Lymph # (Auto) 1.09 L [place]ven # (Auto) 0.92 H 1.30 H Seg Neutrophils % Lymphocytes % Absolute Neutrophils 17.24 H 13.28 H Nucleated RBCs RBC Morphology Polychromasia PT INR Sodium Chloride Carbon Dioxide 20 L BUN 24 H Creatinine Glucose 146 H Calcium Phosphorus 2.2 L Magnesium Alkaline Phosphatase Lactate Dehydrogenase C-Reactive Protein Total Protein Albumin 2.1 L Globulin 4.2 H Albumin/Globulin Ratio 0.5 L Procalcitonin Urine Appearance Urine Protein Urine Glucose (UA) Ur Leukocyte Esterase Urine RBC Urine WBC Uric Acid Crystals Urine Bacteria Hyaline Casts Urine Mucus 04/23/20 04/23/20 04/24/20 05:45 05:45 06:01 WBC 14.6 H 16.3 H RBC 3.99 L Hgb 11.6 L 11.9 L Hct Plt Count MPV 10.5 H Neut % (Auto) 80.0 H 79.6 H Lymph % (Auto) 9.9 L 10.1 L Lymph # (Auto) 1.44 L Craven # (Auto) 1.30 H 1.47 H Seg Neutrophils % Lymphocytes % Absolute Neutrophils 11.67 H 12.97 H Nucleated RBCs RBC Morphology Polychromasia PT INR Sodium 131 L Chloride Carbon Dioxide 20 L BUN 26 H Creatinine Glucose 215 H Calcium 8.4 L Phosphorus 2.3 L Magnesium Alkaline Phosphatase Lactate Dehydrogenase C-Reactive Protein Total Protein Albumin 1.9 L Globulin 4.0 H Albumin/Globulin Ratio 0.5 L Procalcitonin Urine Appearance Urine Protein Urine Glucose (UA) Ur Leukocyte Esterase Urine RBC Urine WBC Uric Acid Crystals Urine Bacteria Hyaline Casts Urine Mucus 04/24/20 04/25/20 12:32 05:18 WBC RBC Hgb Hct Plt Count MPV Neut % (Auto) Lymph % (Auto) Lymph # (Auto) Craven # (Auto) Seg Neutrophils % Lymphocytes % Absolute Neutrophils Nucleated RBCs RBC Morphology Polychromasia PT INR Sodium 132 L Chloride Carbon Dioxide 19 L 20 L BUN 24 H Creatinine Glucose 257 H 138 H Calcium 8.3 L Phosphorus Magnesium Alkaline Phosphatase Lactate Dehydrogenase 266 H C-Reactive Protein Total Protein 5.7 L Albumin 2.0 L 2.0 L Globulin 4.4 H Albumin/Globulin Ratio 0.5 L 0.5 L Procalcitonin Urine Appearance Urine Protein Urine Glucose (UA) Ur Leukocyte Esterase Urine RBC Urine WBC Uric Acid Crystals Urine Bacteria Hyaline Casts Urine Mucus Microbiology: Microbiology 04/22/20 10:55 Blood Blood Culture - Preliminary 04/22/20 10:45 Blood Blood Culture - Preliminary 04/20/20 07:33 Blood Blood Culture - Final 04/18/20 22:30 Blood Blood Culture - Final Staphylococcus aureus 04/18/20 22:23 Blood Blood Culture - Final Staphylococcus aureus 04/20/20 07:45 Blood Blood Culture - Final Staphylococcus aureus 04/20/20 10:22 Aspirate - Buttocks Gram Stain - Final 04/20/20 10:22 Aspirate - Buttocks Body Fluid Culture - Final Staphylococcus aureus 04/19/20 09:04 Urine - Clean Void Mid-Stream Urine Culture - Final 04/18/20 20:15 Nose - Both Right and Left MRSA (PCR) - Final Piriformis aspirate on April 20 + for MSSA. Blood cultures positive from April 18 April 20 with April 22 blood culture is pending yet. A/P Assessment and plan (1) Bacteremia: Status: Acute Comment: Miladis is a 74-year-old diabetic with persistent MSSA bacteremia. She has a known piriformis bilateral abscess which has previously been aspirated. She continues to have leukocytosis and left leg weakness. I have reviewed with Dr. Faulkner. I have recommended repeat CT scan of the pelvis to reevaluate for persistent or organizing abscesses that require drainage. MRI also considered. Continue surveillance blood cultures every other day till negative. PICC line on hold until blood cultures negative. Patient denies back pain. XIOMARA still being considered with known aortic valve stenosis. I would still expect 4 to 6 weeks of IV Ancef once blood cultures negative. Further recommendations to follow based on CT results, possible MRI, possible XIOMARA, and surveillance blood cultures. (2) Muscle abscess: Status: Acute (3) Aortic valve stenosis: Status: Acute (4) Diabetes mellitus: Status: Acute Time Spent With Patient Time: Total time spent is greater than 50% in coordination of care (as documented) at patient's floor/unit and/or counseling patient:
[2020-04-25] MEDS ORDERED: IOPAMIDOL 100 ML BOTTLE IV ONE ×2 (13:45→13:47)
--- NOTE | 2020-04-25 13:53 | Cat Scan Report ---
History: Follow-up pelvic Staphylococcus aureus abscesses TECHNIQUE: The patient was imaged following oral and intravenous contrast scanning from the diaphragm through the symphysis pubis during the venous phase. Sagittal and coronal reformats were created. The radiation exposure was limited using dose reduction technology. FINDINGS: The liver and spleen are normal in size and homogeneous. The gallbladder is normal with no stones or thickening of the wall. Bile ducts are nondilated. There is no mass or inflammation in the pancreas. The adrenals are normal. There is mild atrophy and parenchymal scarring in the right kidney. There is a moderate-sized extrarenal pelvis in the right kidney but there is no evidence of obstruction. The appearance of the right kidney is unchanged from the recent CT done on 04/18/20. The left kidney is normal without evidence of scarring or inflammation. Aorta is normal caliber. There is a moderate amount of plaque along the wall of the aorta. Oral contrast has passed through stomach and normal small intestine and colon to the rectum without obstruction. There are multiple diverticula in the sigmoid and several in the descending colon but without evidence of acute diverticulitis or bowel obstruction. The appendix is not visualized. Patient has multiple enlarging pelvic abscesses. Along the superior aspect of the left iliacus muscle there is an abscess which extends above the level of the iliac crest and measures 5.2 x 7.5 x 8.4 cm. There is a smaller abscess in the adjacent left psoas muscle which measures approximately 3.1 x 3.4 cm. A large multiloculated abscess is present in the left piriformis muscle. This begins anterior to the sacrum and extends posterior to the left hip. Measures roughly 14 cm in length, 4.3 cm in width and 5.5 cm and craniocaudal dimension. Smaller abscess is present in the right piriformis muscle which is localized to the pelvis. It measures 4.2 x 7.3 cm. There is no paraspinal abscess. Patient does have severe spinal canal stenosis due to degenerative changes at L3-4. The hip joints and SI joints are noninflamed. 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 Urinary bladder appears normal. Uterus and ovaries are absent. IMPRESSION: Multiple pelvic abscesses which have enlarged several centimeter since 04/18/20. Surgical drainage is recommended. Results were discussed with Dr. Faulkner Interpreted and Authenticated by: John Ram 04/25/20
--- NOTE | 2020-04-25 14:57 | Transfer Summary ---
Discharge Provider Provider Patient information: Note initiated : 04/25/20 at 2:51 pm Service Date, if different from initiated Date: [] Patient: Miladis Salazar a 74 y/o F admitted on 04/19/20 for Fall, lethargic, not eating or drinking. Transfer diagnosis * Multiple intra-abdominal/pelvic abscesses on CT abdomen pelvis. ID/radiology recommends transfer to tertiary center for drainage/surgical exploration. Status post CT-guided pyriformis abscess drainage on 04/19. Interval worsening noted on imaging * MSSA bacteremia-on cefazolin per ID. Await surveillance cultures from 04/22 and 04/24. * Severe sepsis secondary to bacteremia. On antibiotic coverage. 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 Clinically resolved * Encephalopathy: Clinically improving. Remains lethargic. Likely manifestation of sepsis endorgan dysfunction/bacteremia. * Complicated*UTI: Resolved on antibiotics. * DM w/Hyperglycemia: Basal prandial insulin/CCD * HTN/HLD: Managed on ezetimibe/spironolactone/bisoprolol * Hypothyroidism: Managed on thyroxine * Generalized weakness/deconditioning: Managed on directed therapy/PT as tolerated/nutrition support Brief hospital course Ms. Salazar is a 74 year old F, History obtained from chart as well as patient, patient poor historian. Patient fell about a week ago onto her bottom. Do not know where she was seen she could not give me that history. She said she got some x-rays and was given some pain medication and went home. Over the past week per she has been increasingly weak decreased oral intake. Lethargic and sleeping a lot at home. In the ED she was quite somnolent. Found to have acute kidney injury. She had a significant leukocytosis of 23,000. She was given IV fluid hydration with improvement in her mentation through the night. Imaging of her pelvis showed a markedly diffuse enlargement of the left piriformis muscle and moderate in the right. Case discussed with radiologist who could not rule out developing fracture of that muscle on imaging recommended a needle biopsy. Patient thinks she has missed some medications lately at home. Her blood glucose was quite elevated. The found to be mildly hyponatremic which improved with IV fluids overnight. CRP was 32. She does have some low back/pelvis pain more on the left side low back. 04/20 Patient feeling better. States she feels "like a person again". Hip pain slowly improving. Awaiting aspiration fluid analysis culture Gram stain. Blood cultures positive for gram-positive likely staph. 04/21-patient resting comfortably. Surveillance blood culture positive for gram-positive cocci 04/20. On antibiotic coverage per ID on cefepime/vancomycin. White count at 19.4, sodium 130 CRP 26.5 04/22-surveillance cultures positive. Repeat cultures pending. Continuing on antibiotic coverage per ID. White count down to 16,000. Appears fatigued and lethargic. No anxiety. Continuing bank and cefepime. Blood sugars at goal. Echocardiogram negative for vegetations 04/23-patient doing well. Surveillance cultures positive. Repeat surveillance antibiotics switched to cefazolin. Will discuss with ID. Continuing cefepime/vancomycin. MSSA on cultures. Will likely require XIOMARA if surveillance cultures positive. Hold PICC line placement until negative surveillance cultures to prevent hardware contamination. Overall lethargic fatigue. White count downtrending. Unable to participate in physical therapies due to profound weakness. White count at 14.6. Sodium 131, blood glucose 215. 04/24-patient status quo. White count higher at 16.3. Antibiotics switched to cefazolin. Surveillance cultures pending. Hold PICC line placement until negative cultures for 5 days. No overnight fever chills. 04/25-continue cefazolin. Clinically unchanged. Surveillance cultures from 04/22 remains negative. No overnight fever chills. Systolics 130s. Blood sugars 140. On room air. Afebrile. 04/25-12:15 PM Case discussed with infectious specialist. Worsening leukocytosis. Also complaining of pain during hip flexion. Subsequently case discussed with radiology. Recommend CT scan for evaluation of piriformis/abdominal abscess. Currently on cefazolin. I subsequently discussed patient status with patient's son Edmond Quinn at [phone]. Updated about goals of care/treatment plan including CT scan and possible drainage if further evidence of abscess on imaging. 2 PM-case discussed with infectious specialist and radiology. Multiple abscesses around pyriformis/iliac's/psoas. Radiology in ID recommends transferring patient to tertiary center for further evaluation management for drainage/surgical exploration. Patient will be transferred via ground ambulance to [facility] under care of hospitalist Dr. Baylee Kauffman for further management. Date of admission: 04/19/20 09:10 Discharge date: 04/25/20 Primary care physician: Maria Dolores Fernandes Consults: 04/19/20 07:21 Consult to Physician [CONS] Stat Comment: Consulting Provider: Gopi Lipscomb Reason For Exam: Physician to Consult 04/19/20 15:29 Consult to Physician [CONS] Routine Comment: Consulting Provider: Guy Gruber Reason For Exam: Physician to Consult Discharge Meds Discharge Medications Home Medications aspirin 81 mg chewable tablet 81 mg PO QDAY tab 11/19/14 [History Confirmed 04/19/20 Last Taken Unknown] naproxen sodium 220 mg capsule 440 mg PO Q12H cap 07/25/15 [History Confirmed 04/19/20 Last Taken Unknown] bisoprolol fumarate 10 mg tablet 5 mg PO QDAY tab 03/23/18 [History Confirmed 04/19/20 Last Taken Unknown] ezetimibe 10 mg-simvastatin 80 mg tablet 1 tab PO QDAY 03/23/18 [History Confirmed 04/19/20 Last Taken Unknown] spironolactone 25 mg tablet 25 mg PO QDAY 03/23/18 [History Confirmed 04/19/20 Last Taken Unknown] nitroglycerin 0.4 mg sublingual tablet 0.4 mg SUBLINGUAL .COMPLEX PRN #25 tab 01/25/19 [Rx Confirmed 04/19/20 Last Taken Unknown] glipizide 10 mg tablet, extended release 24 hr 10 mg PO QDAY #30 tab 02/09/19 [Rx Confirmed 04/19/20 Last Taken Unknown] liraglutide 0.6 mg/0.1 mL (18 mg/3 mL) subcutaneous pen injector 1.8 mg SUB-Q QDAY #27 ml 03/07/19 [Rx Confirmed 04/19/20 Last Taken Unknown] ergocalciferol (vitamin D2) 1,250 mcg PO WEEKLY 04/19/20 [History Confirmed 04/19/20 Last Taken Unknown] levothyroxine 88 mcg PO QDAY 04/19/20 [History Confirmed 04/19/20 Last Taken Unknown] lisinopril 2.5 mg PO QDAY 04/19/20 [History Confirmed 04/19/20 Last Taken Unknown] sitagliptin [Januvia] 100 mg PO QDAY 04/19/20 [History Confirmed 04/19/20 Last Taken Unknown] COURSE Hospital Course Hospital course: . Discharge diagnosis: Multiple Time Spent with Patient Time attestation: Total time spent providing and/or coordinating discharge services: EXAM Constitutional Vitals: Temp Pulse Resp BP Pulse Ox 98.7 F 73 22 117/66 98 04/25/20 11:38 04/25/20 11:38 04/25/20 11:38 04/25/20 11:38 04/25/20 11:38 Discharge Data Data Completed and Pending Labs on day of discharge: Labs from last 24 hours 04/25/20 04/24/20 04/20/20 05:18 12:32 05:55 WBC RBC Hgb Hct MCV MCH MCHC RDW Plt Count MPV Neut % (Auto) Sodium 135 132 L Potassium 4.5 4.2 Chloride 104 101 Carbon Dioxide 20 L 19 L Anion Gap 11.0 12.0 BUN 23 24 H Creatinine 1.1 1.1 GFR Calculation 49 49 Glucose 138 H 257 H Uric Acid 4.0 4.3 Calcium 8.8 8.3 L Phosphorus 2.9 2.7 Magnesium 1.8 1.7 Total Bilirubin 0.3 0.2 Direct Bilirubin < 0.2 < 0.2 TNP GGT 34 30 AST 30 30 ALT 21 21 Alkaline Phosphatase 111 105 Lactate Dehydrogenase 266 H 216 Total Protein 6.4 5.7 L Albumin 2.0 L 2.0 L Globulin 4.4 H 3.7 Albumin/Globulin Ratio 0.5 L 0.5 L Triglycerides 118 101 04/20/20 05:55 WBC TNP RBC TNP Hgb TNP Hct TNP MCV TNP MCH TNP MCHC TNP RDW TNP Plt Count TNP MPV TNP Neut % (Auto) TNP Sodium Potassium Chloride Carbon Dioxide Anion Gap BUN Creatinine GFR Calculation Glucose Uric Acid Calcium Phosphorus Magnesium Total Bilirubin Direct Bilirubin GGT AST ALT Alkaline Phosphatase Lactate Dehydrogenase Total Protein Albumin Globulin Albumin/Globulin Ratio Triglycerides Preliminary micro results at discharge 04/24/20 12:05 Blood Culture - Preliminary Blood 04/24/20 11:56 Blood Culture - Preliminary Blood 04/22/20 10:55 Blood Culture - Preliminary Blood 04/22/20 10:45 Blood Culture - Preliminary Blood Discharge Plan Patient/Caregiver Discharge Instructions Activity: other Diet: Consistent Carbohydrate Prescriptions: No Action nitroglycerin 0.4 mg tablet, sublingual 0.4 mg SUBLINGUAL .COMPLEX PRN (Reason: chest pain) Qty: 25 RF: 0 glipizide 10 mg tablet extended release 24hr 10 mg PO QDAY Qty: 30 RF: 2 Victoza 3-Jero 0.6 mg/0.1 mL (18 mg/3 mL) pen injector 1.8 mg SUB-Q QDAY Qty: 27 RF: 0 bisoprolol fumarate 10 mg tablet 5 mg PO QDAY RF: 0 ezetimibe-simvastatin 10-80 mg tablet 1 tab PO QDAY RF: 0 spironolactone 25 mg tablet 25 mg PO QDAY RF: 0 aspirin 81 mg tablet,chewable 81 mg PO QDAY RF: 0 naproxen sodium [Aleve] 220 mg capsule 440 mg PO Q12H RF: 0 lisinopril 2.5 mg Tablet 2.5 mg PO QDAY RF: 0 levothyroxine 88 mcg Tablet 88 mcg PO QDAY RF: 0 ergocalciferol (vitamin D2) 1,250 mcg (50,000 unit) Capsule 1,250 mcg PO WEEKLY RF: 0 Januvia 100 mg Tablet 100 mg PO QDAY RF: 0 Other Ambulatory Orders: Transesophageal Echocardiogram (Routine) Location: None Selected Ordered By: Pardeep Ortega Follow Up Plan Follow up with: Maria Dolores Fernandes MD [Primary Care Provider] - 05/01/20 11:30 am Guy Gruber MD [Physician] - 05/03/20 10:00 am Patient Disposition: [facility] Rehab Potential: Serious I certify that the patient requires SNF services: No Overall status at discharge: patient is not back to baseline Discharge Date/Time: 04/25/20 20:35 Discharge Orders: Discharge Order (Routine); Ordered 04/25/20 Ordered By: Pardeep Ortega Discharge Comment: [facility] QUALITY VTE Deep Vein Thrombosis/Pulmonary Embolism Present on Admission: No
[2020-04-25] MEDS: EZETIMIBE 10 MG TABLET PO SCH (20:23)
[2020-04-25] MEDS: SIMVASTATIN 40 MG TABLET PO SCH (20:23)
[2020-04-26] MEDS ORDERED: LISINOPRIL 2.5 MG TABLET PO SCH (09:00)
== END 2020-04-25 20:35 | disposition short-term general hospital (02) | DRG 853 ==
LOC: ED 16:36 → MEDSUR 04-19 09:10
PROVIDERS: ADMIT Internal Medicine; ATTEND Internal Medicine